=== PATIENT | female | born 1955 | race Caucasian/White ===

== ENCOUNTER 2018-02-01 18:53 | Observation (INO) | payer MEDICAID ==
--- NOTE | 2018-02-01 19:26 | ED ---
Abdominal Pain/Female - HPI Summary HPI Summary: A 62 y/o female NAUN presents to ED c/o abdominal pain reaching 20/10 in severity. Currently, the patient is in severe pain distress. In the ED room, the patient has a pulse of 105 BPM, O2 saturation of 94% and blood pressure of 203/105. As per triage, "20/10 abdominal pain, pt had BM today that was normal, denies urinary symptoms, heavy daily Vodka drinker, Drank today. 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 Hx HTN and 8x Hernia ". According to the patient, she has been experiencing severe diffuse abdominal pain, more so in the RLQ since the morning. She noted that she has not been vomiting, however, the pain has been getting worse throughout he day. 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 She stated that she could not get the pain to stop, so she has been drinking ETOH "to kill the pain", but denied everyday use. She noted that she has exhibited stomach issues since she was 3 y/ o, however, not like the pain she experiences today. Last known BM was in the AM (approximately half a cup), she urinated about a gallon because she took in lots of water throughout the day. Upon entering the ED room, the patient has her body in a odd position as laying flat aggravates the pain. She was complient with evaluation, however, she was moaning and in obvious distress during examination. PMHx of eight hernias, appendectomy. Patient takes insulin and HBP medications. - History of Current Complaint Chief Complaint: EDAbdPain Stated Complaint: ABD PAIN, ETOH Time Seen by Provider: 02/01/18 19:23 Hx Obtained From: Patient Onset/Duration: Sudden Onset, Lasting Hours, Still Present, Worse Since - AM Timing: Constant Severity Initially: Severe Severity Currently: Severe Pain Intensity: 20 Pain Scale Used: 0-10 Numeric Location: Diffuse - More so in RLQ Radiates: No Aggravating Factor(s): Movement, Other: - POSITION Alleviating Factor(s): Position Associated Signs and Symptoms: Positive: Negative Allergies/Adverse Reactions: Allergies Allergy/AdvReac Type Severity Reaction Status Date / Time aspirin Allergy Hives Verified 02/01/18 18:58 Home Medications: Home Medications NK [No Home Medications Reported] 02/01/18 [History Confirmed 02/01/18] PMH/Surg Hx/FS Hx/Imm Hx Endocrine/Hematology History: Reports: Hx Diabetes Cardiovascular History: Reports: Hx Hypertension Respiratory History: Denies: Hx Asthma - Surgical History Surgery Procedure, Year, and Place: Eight hernia surgeries Infectious Disease History: No Infectious Disease History: Denies: Traveled Outside the [place] in Last 30 Days - Family History Known Family History: Positive: Diabetes, Other - Brain Tumor - Father - Social History Alcohol Use: Occasionally Substance Use Type: Reports: None Hx Tobacco Use: No Review of Systems Negative: Fever Positive: Abdominal Pain. Negative: Vomiting All Other Systems Reviewed And Are Negative: Yes Physical Exam - Summary Physical Exam Summary: VITAL SIGNS: Reviewed. GENERAL: Patient is a female who is lying uncomfortably in the stretcher. She keeps her body in odd position to alleviate pain. Patient is moaning and in obvious pain distress. Patient is not in any acute respiratory distress. HEAD AND FACE: No signs of trauma. No ecchymosis, hematomas or skull depressions. No sinus tenderness. EYES: PERRLA, EOMI x 2, No injected conjunctiva, no nystagmus. EARS: Hearing grossly intact. Ear canals and tympanic membranes are within normal limits. MOUTH: Oropharynx within normal limits. NECK: Supple, trachea is midline, no adenopathy, no JVD, no carotid bruit, no c- spine tenderness, neck with full ROM. CHEST: Symmetric, no tenderness at palpation LUNGS: Clear to auscultation bilaterally. No wheezing or crackles. CVS: Regular rate and rhythm, S1 and S2 present, no murmurs or gallops appreciated. ABDOMEN: Soft. Diffuse abdominal tenderness, abdomen is distended, hyperactive bowel sounds. No rebound no guarding, and no masses palpated. EXTREMITIES: FROM in all major joints, no edema, no cyanosis or clubbing. NEURO: Alert and oriented x 3. No acute neurological deficits. Speech is normal and follows commands. SKIN: Swelling and ecchymosis of the left hand, but patient stated it has been going on for over a week. Triage Information Reviewed: Yes Vital Signs On Initial Exam: Initial Vitals Temp Pulse Resp BP Pulse Ox 98.0 F 99 18 176/101 97 02/01/18 18:57 02/01/18 18:57 02/01/18 18:57 02/01/18 18:57 02/01/18 18:57 Vital Signs Reviewed: Yes Diagnostics - Vital Signs Vital Signs Temp Pulse Resp BP Pulse Ox 02/01/18 18:57 98.0 F 99 18 176/101 97 - Laboratory Result Diagrams: 02/01/18 20:01 02/01/18 20:01 Lab Statement: Any lab studies that have been ordered have been reviewed, and results considered in the medical decision making process. - Radiology ABDOMEN XR Radiology Interpretation Completed By: ED Physician - Non-specific gas pattern. Pending official report. - CT CT A/P CT Interpretation Completed By: Radiologist - 1. Cholelithiasis. 2. Fatty infiltration of the liver. 3. Status post gastric bypass. 4. Pancreatic atrophy for age. 5. Embolization coils in right adnexa. 6. Otherwise negative CT abdomen/pelvis. ED PHYSICIAN REVIEWED THIS RADIOLOGY REPORT. Abdominal Pain Fem Course/Dx - Course Course Of Treatment: A 62 y/o female NAUN presents to ED c/o abdominal pain reaching 20/10 in severity. Currently, the patient is in severe pain distress. In the ED room, the patient has a pulse of 105 BPM, O2 saturation of 94% and blood pressure of 203/105. An Abdomen XR revealed non-specific gas pattern. A CT A/P revealed 1. Cholelithiasis. 2. Fatty infiltration of the liver. 3. Status post gastric bypass. 4. Pancreatic atrophy for age. 5. Embolization coils in right adnexa. 6. Otherwise negative CT abdomen/pelvis. In the ED course, the patient recieved Thiamina HCL, Diazepam, Iodixanol, Toradol, Reglan , Morphine and IV fluids. Patient care was discussed with hospitalist, Dr. Cochran, who accepts patient for admission. Patient will be admitted with a diagnosis of alcohol withdrawal. Patient is agreeable with this plan. - Diagnoses Provider Diagnoses: Alcohol withdrawal - Provider Notifications Discussed Care Of Patient With: Reagan Cochran Time Discussed With Above Provider: 03:19 Instructed by Provider To: Other - Accepts patient for admission. Discharge - Sign-Out/Discharge Documenting (check all that apply): Patient Departure - DISCHARGE - Discharge Plan Condition: Stable Disposition: HOME Referrals: No Primary Care Phys,NOPCP [Primary Care Provider] - - Attestation Statements Document Initiated by Scribe: Yes Documenting Scribe: Arnaldo Maldonado Provider For Whom Scribe is Documenting (Include Credential): Erika Crain Attestation: Arnaldo Galvan, scribed for Deyanira Abebe on 02/02/18 at 0320.
[2018-02-01] MEDS ORDERED: Metoclopramide IV* 5 MG/ML 2 ML VIAL IV ONE (19:37)
[2018-02-01] MEDS ORDERED: Morphine INJ* 2 MG/ML 1 ML SYRINGE (TWO MG - NEW SYRINGE VERSION) IV ONE (19:37)
[2018-02-01] MEDS ORDERED: NS 0.9% 1000 ML* 1,000 ML IV ONE ×2 (19:37→20:28)
[2018-02-01 20:10] LABS: ABS Basophils 0.1 10^3/ul (0-0.2); ABS Eosinophils 0 10^3/ul (0-0.6); ABS Lymphocytes 1.9 10^3/ul (1.0-4.8); ABS Monocytes 0.6 10^3/ul (0-0.8); ABS Neutrophils 4.9 10^3/ul (1.5-7.7); ABS Nucleated RBC 0 10^3/ul; Eosinophil % 0.6 % (0-6); Hematocrit 42 % (35-47); Hemoglobin 14.3 g/dl (12.0-16.0); Lymphocyte % 24.8 % (25-47); Mean Corpuscular HGB Conc 34 g/dl (31-36); Mean Corpuscular Hemoglobin 31 pg (27-31); Mean Corpuscular Volume 92 fL (80-97); Mean Platelet Volume 6.8 um3 (7.4-10.4); Nucleated Red Blood Cells % 0.1; Platelet Count 351 10^3/ul (150-450); Red Blood Count 4.56 10^6/ul (4.00-5.40); Red Cell Distribution Width 14 % (10.5-15); White Blood Count 7.5 10^3/ul (3.5-10.8)
--- OUTSIDE RECORDS SUMMARY | 2018-02-01 20:12 | XMS REPORT | Continuity of Care Document ---
:[address] [facility] Address [address] [place], [place] [id number] Care Team Providers Name Role Phone Tanisha Conroy MD Unavailable Unavailable Allergies, Adverse Reactions, Alerts Substance Reaction Status No information Medications Medication Instructions Dosage Effective Dates Status Comments (start - stop) BD Insulin Syringe use as directed - Active ICD-10 is E11.6 Half Unit Ultra-Fine 0.3 mL 31 gauge x 5/16" Problems Condition Effective Dates (start - stop) Clinical Status Comments No information Procedures Procedure Date No information Results Test Name Date and Time Measure Units Reference Range Abnormal Flag Status Comments No information Advance Directives Directive Yes / No Effective Date File Name No information Encounters Encounter Practice Location Reason(s) Diagnoses Date Provider Providers Description For Visit Copied on Encounter Shanika Voss [facility] Tanisha. [facility] [address] Services, [facility] [address] [facility] [address], . [place], tel:[phone] Shanika, [address] [place], [phone], Family History Family Member Diagnosis Age At Onset Mother Stroke Mother Hypertension Brother Osteoarthritis Father Depression Family history of Hypertension Father Hypertension Brother Hypertension Father OCD Family history of Diabetes mellitus Mother Hyperlipidemia Immunizations Vaccine Date Status Comments No information Payers Payer name Insurance type Covered alliance party ID Authorization(s) Medicaid [id number] Social History Type Description Quantity Date Captured Comments Alcohol Use Details Unknown Caffeine Use Details Unknown Tobacco Use Status Unknown Smoking Status Unknown Sex Female Vital Signs Date / Height Weight BMI Pulse Blood Temperature Respiratory Body Head BMI Pulse Inhaled Time: Rate Pressure Rate Surface Circumference percentile Ox Ox Area No information Chief Complaint And Reason For Visit No information Reason For Referral Reason For Referral No information Plan Of Treatment Date Type Action Status Appointment Nella Laboy BOOKED History Of Present Illness Encounter Date Complaint History Of Present Illness No information Functional Status Date Functional Assessment No information Medications Administered Medication Instructions Dosage Effective Dates (start - stop) Status Comments No information Instructions Date Instruction Additional Information No information Assessments Type Assessment Date No information Goals Health Concern Goal Type Priority Status Date No information Medical Equipment Description Device [place] Device Identifier Effective Dates (start - stop ) Status No information Mental Status Date Cognitive Assessment No information Health Concerns Observation Date No information Concern Status Date No information
--- OUTSIDE RECORDS SUMMARY | 2018-02-01 20:12 | XMS REPORT | Continuity of Care Document ---
:1955 Author Organization [facility] Address [address] [place], [place] [id number] Care Team Providers Name Role Phone Stephanie Andrews Unavailable Unavailable Allergies, Adverse Reactions, Alerts Substance Reaction Status No information Medications Medication Instructions Dosage Effective Dates Status Comments (start - stop) ferrous sulfate take 1 by Oral route 1 - Active 325 mg (65 mg 2 times every day iron) tablet Miralax 17 TAKE (17G) BY ORAL - No Longer gram/dose oral ROUTE EVERY DAY Active powder MIXED WITH 8 OZ. WATER, JUICE, SODA, COFFEE OR TEA Problems Condition Effective Dates (start - stop) Clinical Status Comments No information Procedures Procedure Date No information Results Test Name Date and Time Measure Units Reference Range Abnormal Flag Status Comments No information Advance Directives Directive Yes / No Effective Date File Name No information Encounters Encounter Practice Location Reason(s) Diagnoses Date Provider Providers Description For Visit Copied on Encounter [facility] [address], [facility] [address] [facility] [address], . [place], tel:[phone] Shanika [address] [place], [phone], Family History Family Member Diagnosis Age At Onset Mother Stroke Mother Hypertension Brother Osteoarthritis Father Depression Family history of Hypertension Father Hypertension Brother Hypertension Father OCD Family history of Diabetes mellitus Mother Hyperlipidemia Immunizations Vaccine Date Status Comments No information Payers Payer name Insurance type Covered constitution party ID Authorization(s) Medicaid [id number] Social History Type Description Quantity Date Captured [...] Type Action Status Appointment Nella Laboy BOOKED Appointment Nella Laboy BOOKED History Of Present [...] Date No information Medical Equipment Description Device [place] Device Identifier Effective Dates (start - stop ) Status No information Mental Status Date Cognitive Assessment No information Health Concerns Observation Date No information Concern Status Date No information
--- OUTSIDE RECORDS SUMMARY | 2018-02-01 20:12 | XMS REPORT | Continuity of Care Document ---
:1955 Author Organization [facility] Address [address] [place], [place] [id number] Care Team Providers Name Role Phone Tanisha Conroy MD Unavailable Unavailable Allergies, Adverse Reactions, Alerts Substance Reaction Status No information Medications Medication Instructions Dosage Effective Dates Status Comments (start - stop) PRAVASTATIN SODIUM 20 TAKE 1 TABLET EVERY 20 MG - Active MG TAB DAY PIROXICAM 10 MG TAKE ONE CAPSULE EVERY 10 MG - Active CAPSULE DAY WITH MEALS METFORMIN HCL 500 MG TAKE 1 TABLET EVERY 500 MG - Active TABLET DAY HYDROXYZINE HCL 25 MG TAKE 1 TABLET EVERY - Active TABLET DAY NEEDED FREESTYLE LITE TEST TEST THREE TIMES A DAY 2 - Active STRIP Problems Condition Effective Dates (start - stop) Clinical Status Comments No information Procedures Procedure Date No information Results Test Name Date and Time Measure Units Reference Range Abnormal Flag Status Comments No information Advance Directives Directive Yes / No Effective Date File Name No information Encounters Encounter Practice Location Reason(s) Diagnoses Date Provider Providers Description For Visit Copied on Encounter Shanika Voss [facility] -[facility] Tanisha. [facility] [address] [address] [place] [address], . [place], tel:[phone] Shanika, [address] [place], [phone], Family History Family Member Diagnosis Age At Onset Mother Stroke Mother Hypertension Brother Osteoarthritis Father Depression Family history of Hypertension Father Hypertension Brother Hypertension Father OCD Family history of Diabetes mellitus Mother Hyperlipidemia Immunizations Vaccine Date Status Comments No information Payers Payer name Insurance type Covered green party ID Authorization(s) Medicaid [id number] Social History Type Description Quantity Date Captured Comments Sex Female Vital Signs Date / Height [...] Date No information Medical Equipment Description Device [place] Device Identifier Effective Dates (start - stop ) Status No information Mental Status Date Cognitive Assessment No information Health Concerns Observation Date No information Concern Status Date No information
--- OUTSIDE RECORDS SUMMARY | 2018-02-01 20:12 | XMS REPORT | Continuity of Care Document ---
:1955 Author Organization [facility] Address [address] [place], [place] [id number] Care Team Providers Name Role Phone Tanisha Conroy MD Unavailable Unavailable Allergies, Adverse Reactions, Alerts Substance Reaction Status No information Medications Medication Instructions Dosage Effective Dates Status Comments (start - stop) LISINOPRIL 10 MG TAKE 1 TABLET EVERY 10 MG - Active TABLET DAY Problems Condition Effective Dates (start - stop) Clinical Status Comments No information Procedures Procedure Date No information Results Test Name Date and Time Measure Units Reference Range Abnormal Flag Status Comments No information Advance Directives Directive Yes / No Effective Date File Name No information Encounters Encounter Practice Location Reason(s) Diagnoses Date Provider Providers Description For Visit Copied on Encounter Shanika Voss [facility] -[facility] Tanisha. [facility] [address] [facility] [facility] [address], . [place], tel:[phone] Shanika, [address] [place], [phone], Family History Family Member Diagnosis Age At Onset Mother Stroke Mother Hypertension Brother Osteoarthritis Father Depression Family history of Hypertension Father Hypertension Brother Hypertension Father OCD Family history of Diabetes mellitus Mother Hyperlipidemia Immunizations Vaccine Date Status Comments No information Payers Payer name Insurance type Covered libertarian ID Authorization(s) Medicaid [id number] Social History Type Description Quantity Date Captured [...] Date No information Medical Equipment Description Device [place] Device Identifier Effective Dates (start - stop ) Status No information Mental Status Date Cognitive Assessment No information Health Concerns Observation Date No information Concern Status Date No information
--- OUTSIDE RECORDS SUMMARY | 2018-02-01 20:12 | XMS REPORT | Continuity of Care Document ---
:1955 Author Organization [facility] Address [address] [facility] [place] [id number] Care Team Providers Name Role Phone David Park MD Unavailable Unavailable Allergies, Adverse Reactions, Alerts Substance Reaction Status No information Medications Medication Instructions Dosage Effective Dates Status Comments (start - stop) POLYETHYLENE GLYCOL TAKE (17G) BY ORAL - Active [address] EVERY DAY MIXED WITH 8 OZ. WATER, JUICE, SODA, [...] For Visit Copied on Encounter Shanika Voss [facility] David. [address] [facility] [address] [facility], . Cat[place] tel:[phone] [place], [address] [place], [place], [phone], Family History Family Member Diagnosis Age At Onset Mother Stroke Mother Hypertension Brother Osteoarthritis Father Depression Family history of Hypertension Father Hypertension Brother Hypertension Father OCD Family history of Diabetes mellitus Mother Hyperlipidemia Immunizations Vaccine Date Status Comments No information Payers Payer name Insurance type Covered green party ID Authorization(s) Medicaid [id number] Social History Type Description Quantity Date Captured [...] Date No information Medical Equipment Description Device [place] Device Identifier Effective Dates (start - stop ) Status No information Mental Status Date Cognitive Assessment No information Health Concerns Observation Date No information Concern Status Date No information
--- OUTSIDE RECORDS SUMMARY | 2018-02-01 20:12 | XMS REPORT | Continuity of Care Document ---
:1955 Author Organization [facility] Address [address] [place], [place] [phone] Care Team Providers Name Role Phone David Park MD Unavailable Unavailable Allergies, Adverse Reactions, Alerts Substance Reaction Status No information Medications Medication Instructions Dosage Effective Dates Status Comments (start - stop) CYANOCOBALAMIN 1,000 INJECT 1 MILLILITER - Active MCG/ML INTRAMUSCULARLY EVERY MONTH Problems Condition Effective Dates (start - stop) Clinical Status Comments No information Procedures Procedure Date No information Results Test Name Date and Time Measure Units Reference Range Abnormal Flag Status Comments No information Advance Directives Directive Yes / No Effective Date File Name No information Encounters Encounter Practice Location Reason(s) Diagnoses Date Provider Providers Description For Visit Copied on Encounter Shanika Voss [facility] David. [address] [facility], [address] [place], [facility], . Catcher tel:[phone] [place], [address] [place], [place], [phone], Family History Family Member Diagnosis Age At Onset Mother Stroke Mother Hypertension Brother Osteoarthritis Father Depression Family history of Hypertension Father Hypertension Brother Hypertension Father OCD Family history of Diabetes mellitus Mother Hyperlipidemia Immunizations Vaccine Date Status Comments No information Payers Payer name Insurance type Covered constitution party ID Authorization(s) Medicaid [id number] Social History Type Description Quantity Date Captured [...] Date No information Medical Equipment Description Device [place] Device Identifier Effective Dates (start - stop ) Status No information Mental Status Date Cognitive Assessment No information Health Concerns Observation Date No information Concern Status Date No information
--- OUTSIDE RECORDS SUMMARY | 2018-02-01 20:12 | XMS REPORT | Continuity of Care Document ---
:1955 Author Organization [facility] Address [address] [place], [place] [phone] Care Team Providers Name Role Phone Tanisha Conroy MD Unavailable Unavailable Allergies, Adverse Reactions, Alerts Substance Reaction Status No information Medications Medication Instructions Dosage Effective Dates Status Comments (start - stop) Lovaza 1 gram TAKE 2 CAPSULES BY - Active capsule MOUTH TWICE A DAY hydrocodone 5 take 1 tablet by 1 tablet - Active MDD of 3 tabs mg-acetaminophen oral route every 8 325 mg tablet hours as needed for pain Problems Condition Effective Dates (start - stop) Clinical Status Comments No information Procedures Procedure Date No information Results Test Name Date and Time Measure Units Reference Range Abnormal Flag Status Comments No information Advance Directives Directive Yes / No Effective Date File Name No information Encounters Encounter Practice Location Reason(s) Diagnoses Date Provider Providers Description For Visit Copied on Encounter Shanika [facility]oss [facility] Tanisha. [facility] [address] Services, [facility] [address] [facility] [address] [address], . [place], tel:[phone] Shanika, [address] [place], [phone], Family History Family Member Diagnosis Age At Onset Mother Stroke Mother Hypertension Brother Osteoarthritis Father Depression Family history of Hypertension Father Hypertension Brother Hypertension Father OCD Family history of Diabetes mellitus Mother Hyperlipidemia Immunizations Vaccine Date Status Comments No information Payers Payer name Insurance type Covered constitution party ID Authorization(s) Medicaid MC [id number] Social History Type Description Quantity Date Captured [...] Date No information Medical Equipment Description Device [place] Device Identifier Effective Dates (start - stop ) Status No information Mental Status Date Cognitive Assessment No information Health Concerns Observation Date No information Concern Status Date No information
[2018-02-01 20:17] LABS: INR 0.9 (0.77-1.02)
[2018-02-01 20:25] LABS: EGFR Non-African American 82.3 (>60)
[2018-02-01] MEDS ORDERED: Iodixanol* (CONTRAST) 320 MG/ML 100 ML SDV IV ONE (20:29)
--- NOTE | 2018-02-01 21:28 | RAD ---
EXAM: CT Abdomen and Pelvis With Intravenous Contrast EXAM DATE/TIME: Exam ordered 02/01/2018 8:43 PM CLINICAL HISTORY: 62 years old, female; Pain; Abdominal pain; Acute; Prior surgery; Surgery date: 6+ months; Surgery type: Hernia repair; Patient HX: ETOH abuse daily; Additional info: Abd pain TECHNIQUE: Axial computed tomography images of the abdomen and pelvis with intravenous contrast. All CT scans at this facility use at least one of these dose optimization techniques: automated exposure control; mA and/or kV adjustment per patient size (includes targeted exams where dose is matched to clinical indication); or iterative reconstruction. Coronal and sagittal reformatted images were created and reviewed. CONTRAST: 94 mL of visipaque 320 administered intravenously. COMPARISON: No relevant prior studies available. FINDINGS: Lung bases: Unremarkable. No mass. No consolidation. ABDOMEN: Liver: There is fatty infiltration of the liver. Gallbladder and bile ducts: There are multiple gallstones in the gallbladder. No ductal dilation. Pancreas: Pancreatic atrophy for age. No ductal dilation. Spleen: Unremarkable. No splenomegaly. Adrenals: Unremarkable. No mass. Kidneys and ureters: Unremarkable. No solid mass. No hydronephrosis. Stomach and bowel: Status post gastric bypass with minimal fluid in the bypassed stomach. No obstruction. No mucosal thickening. PELVIS: Appendix: There are no changes of appendicitis. A normal appendix is not seen. Bladder: Unremarkable. No mass. Reproductive: Unremarkable as visualized. ABDOMEN and PELVIS: Intraperitoneal space: Unremarkable. No free air. No significant fluid collection. Bones/joints: Degenerative changes of the thoracic and lumbar spine with facet arthropathy and mild anterolisthesis of L4 relative to L5. No acute fracture. No dislocation. Soft tissues: Small fat filled ventral wall hernias. At midline, these appear to be incisional. In the left lower quadrant, there may be residua of prior colostomy. Vasculature: There is mild calcification of the abdominal aorta with extension into the iliac arteries. Metallic densities in the right adnexa which may reflect embolization coils. No abdominal aortic aneurysm. Lymph nodes: Unremarkable. No enlarged lymph nodes. IMPRESSION: 1. Cholelithiasis. 2. Fatty infiltration of the liver. 3. Status post gastric bypass. 4. Pancreatic atrophy for age. 5. Embolization coils in right adnexa. 6. Otherwise negative CT abdomen/pelvis.
[2018-02-01] MEDS ORDERED: Ketorolac INJ* 30 MG/ML 1 ML VIAL ONE (22:40)
[2018-02-01] MEDS ORDERED: Ketorolac INJ* 30 MG/ML 1 ML VIAL IV PUSH ONE (22:42)
[2018-02-02] MEDS ORDERED: NS 0.9% 1000 ML* 1,000 ML IV ONE (00:46)
[2018-02-02] MEDS ORDERED: Thiamine IV* 100 MG, Folic Acid IV* 1 MG, Multiple Vitamin IV ADULT* 10 ML in NS 0.9% 1... IV ONE (03:14)
[2018-02-02] MEDS ORDERED: Diazepam SYRINGE* 5 MG/ML 2 ML SYRINGE (10 MG total) IV ONE (03:14)
[2018-02-02] MEDS ORDERED: Ondansetron INJ* 2 MG/ML VIAL IV ONE (03:30)
--- NOTE | 2018-02-02 03:39 | HP ---
H&P (Free Text) History and Physical: PCP: Dr Conroy at [facility] Date/Time: 02/02/2018 0345 CC: abdominal pain HPI: Mrs Laboy is a 62YO female poor historian HX DM2, HTN, HLD, gastric bypass , who was at home 02/01/2018 in the afternoon when she sat on her couch and developed sudden onset severe sharp nicole-umbilical pain which caused her to "pass out". Family called EMS and she was brought to [facility] [place] [facility]. She reports F/C, sweats, nausea with emesis x1, but no change in bowel/bladder, chest pain, SOB, palpitations, or other issues. Initial ED evaluation revealed a negative CT abd/ pel WO, lactic acid of 3.5, CRP <1, and WBC 7.5k without granulocytic shift. Case was reviewed with Franklin Baig MD surgery who reviewed the CT and agreed to arrange evaluation in the AM. Last bowel movement was AM of 02/01. Currently passing flatus which she states helped the abdominal pain. During her 8H ED stay , she developed tremulousness, mild confusion, diaphoresis about the head/neck, & increasing tachycardia concerning for alcohol withdrawal syndrome as her serum alcohol was >200 at arrival. PMedHx DM2 HTN HLD Ambulatory Orders Patient unable to name. Nursing to reconcile via outpatient pharmacy or PCP in AM. 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; full FamHx: Mother: alive with DM; Father: passed at 86 of unknown cause; Brother: DM ROS: as above, otherwise reviewed and all were negative vitals: Vital Signs Temp 36.7 C 02/01/18 18:57 Pulse 112 02/02/18 02:06 Resp 24 02/02/18 03:53 BP 173/77 02/02/18 02:06 Pulse Ox 96 02/02/18 02:06 Intake & Output 02/01/18 02/01/18 02/02/18 11:59 23:59 11:59 Intake Total 2000 4000 Balance 2000 4000 Weight 74.843 kg Intake: IV Fluids 999 1999 IVPB 999 1999 Constitutional: NAD, normally developed, tremulous, obese white female HEENM: atraumatic; sclera/conjunctiva: anicteric/clear; hearing: clinically intact; oropharynx: clear, mucosa moist Neck: soft tissue: non-tender; thyroid: normal Pulmonary: clear to auscultation bilaterally, good aeration, no accessory muscle use CV: TR/RR, normal S1S2, no carotid bruit, no jugular venous distention, 2+ B DP/ PT, no edema Abdominal: soft, non-distended, mild diffuse tenderness, no rebound/guarding/ rigidity, mildly hyperactive bowel sounds, no hepatosplenomegaly or masses, no costovertebral angle tenderness Musculoskeletal: general: grossly intact, non-tender Integumental: diaphoretic about the head/neck; otherwise normal appearance and texture of exposed skin Psychiatric orientation: AA&O to PPS affect: mildly confused mood: cooperative eye contact: fair content: unreliable responses: highly tangential insight: fair Testing: Lab Results 02/01/18 02/01/18 02/01/18 Range/Units 20:01 20:01 20:01 WBC 7.5 (3.5-10.8) 10^3/ul RBC 4.56 (4.00-5.40) 10^6/ul Hgb 14.3 (12.0-16.0) g/dl Hct 42 (35-47) % MCV 92 (80-97) fL MCH 31 (27-31) pg MCHC 34 (31-36) g/dl RDW 14 (10.5-15) % Plt Count 351 (150-450) 10^3/ul MPV 6.8 L (7.4-10.4) um3 Neut % (Auto) 64.6 (38-83) % Lymph % (Auto) 24.8 L (25-47) % [place] % (Auto) 8.3 H (0-7) % Eos % (Auto) 0.6 (0-6) % Baso % (Auto) 1.7 (0-2) % Absolute Neuts (auto) 4.9 (1.5-7.7) 10^3/ul Absolute Lymphs (auto) 1.9 (1.0-4.8) 10^3/ul Absolute Monos (auto) 0.6 (0-0.8) 10^3/ul Absolute Eos (auto) 0 (0-0.6) 10^3/ul Absolute Basos (auto) 0.1 (0-0.2) 10^3/ul Absolute Nucleated RBC 0 10^3/ul Nucleated RBC % 0.1 INR (Anticoag Therapy) 0.90 (0.77-1.02) APTT 32.3 (26.0-36.3) seconds Sodium 139 (135-145) mmol/L Potassium 3.9 (3.5-5.0) mmol/L Chloride 100 L (101-111) mmol/L Carbon Dioxide 21 L (22-32) mmol/L Anion Gap 18 H (2-11) mmol/L BUN 18 (6-24) mg/dL Creatinine 0.72 (0.51-0.95) mg/dL Est GFR ( Amer) 99.6 (>60) Est GFR (Non-Af Amer) 82.3 (>60) BUN/Creatinine Ratio 25.0 H (8-20) Glucose 103 H (70-100) mg/dL POC Glucose (mg/dL) (70-100) mg/dL Lactic Acid (0.5-2.0) mmol/L Calcium 9.4 (8.6-10.3) mg/dL Magnesium 1.9 (1.9-2.7) mg/dL Total Bilirubin 1.00 (0.2-1.0) mg/dL AST 37 (13-39) U/L ALT 33 (7-52) U/L Alkaline Phosphatase 92 (34-104) U/L C-Reactive Protein < 1.00 (<8.01) mg/L Total Protein 7.2 (6.4-8.9) g/dL Albumin 4.7 (3.2-5.2) g/dL Globulin 2.5 (2-4) g/dL Albumin/Globulin Ratio 1.9 (1-3) Lipase 65 (11.0-82.0) U/L Serum Alcohol 217 H (<10) mg/dL Blood Type Antibody Screen 02/01/18 02/01/18 02/01/18 Range/Units 20:01 20:01 23:45 WBC (3.5-10.8) 10^3/ul RBC (4.00-5.40) 10^6/ul Hgb (12.0-16.0) g/dl Hct (35-47) % MCV (80-97) fL MCH (27-31) pg MCHC (31-36) g/dl RDW (10.5-15) % Plt Count (150-450) 10^3/ul MPV (7.4-10.4) um3 Neut % (Auto) (38-83) % Lymph % (Auto) (25-47) % [place] % (Auto) (0-7) % Eos % (Auto) (0-6) % Baso % (Auto) (0-2) % Absolute Neuts (auto) (1.5-7.7) 10^3/ul Absolute Lymphs (auto) (1.0-4.8) 10^3/ul Absolute Monos (auto) (0-0.8) 10^3/ul Absolute Eos (auto) (0-0.6) 10^3/ul Absolute Basos (auto) (0-0.2) 10^3/ul Absolute Nucleated RBC 10^3/ul Nucleated RBC % INR (Anticoag Therapy) (0.77-1.02) APTT (26.0-36.3) seconds Sodium (135-145) mmol/L Potassium (3.5-5.0) mmol/L Chloride (101-111) mmol/L Carbon Dioxide (22-32) mmol/L Anion Gap (2-11) mmol/L BUN (6-24) mg/dL Creatinine (0.51-0.95) mg/dL Est GFR ( Amer) (>60) Est GFR (Non-Af Amer) (>60) BUN/Creatinine Ratio (8-20) Glucose (70-100) mg/dL POC Glucose (mg/dL) (70-100) mg/dL Lactic Acid 3.5 H* 3.2 H* (0.5-2.0) mmol/L Calcium (8.6-10.3) mg/dL Magnesium (1.9-2.7) mg/dL Total Bilirubin (0.2-1.0) mg/dL AST (13-39) U/L ALT (7-52) U/L Alkaline Phosphatase (34-104) U/L C-Reactive Protein (<8.01) mg/L Total Protein (6.4-8.9) g/dL Albumin (3.2-5.2) g/dL Globulin (2-4) g/dL Albumin/Globulin Ratio (1-3) Lipase (11.0-82.0) U/L Serum Alcohol (<10) mg/dL Blood Type O Positive Antibody Screen Negative 02/02/18 02/02/18 02/02/18 Range/Units 02:43 02:59 02:59 WBC (3.5-10.8) 10^3/ul RBC (4.00-5.40) 10^6/ul Hgb (12.0-16.0) g/dl Hct (35-47) % MCV (80-97) fL MCH (27-31) pg MCHC (31-36) g/dl RDW (10.5-15) % Plt Count (150-450) 10^3/ul MPV (7.4-10.4) um3 Neut % (Auto) (38-83) % Lymph % (Auto) (25-47) % [place] % (Auto) (0-7) % Eos % (Auto) (0-6) % Baso % (Auto) (0-2) % Absolute Neuts (auto) (1.5-7.7) 10^3/ul Absolute Lymphs (auto) (1.0-4.8) 10^3/ul Absolute Monos (auto) (0-0.8) 10^3/ul Absolute Eos (auto) (0-0.6) 10^3/ul Absolute Basos (auto) (0-0.2) 10^3/ul Absolute Nucleated RBC 10^3/ul Nucleated RBC % INR (Anticoag Therapy) (0.77-1.02) APTT (26.0-36.3) seconds Sodium 135 (135-145) mmol/L Potassium 3.6 (3.5-5.0) mmol/L Chloride 99 L (101-111) mmol/L Carbon Dioxide 16 L (22-32) mmol/L Anion Gap 20 H (2-11) mmol/L BUN 15 (6-24) mg/dL Creatinine 0.66 (0.51-0.95) mg/dL Est GFR ( Amer) 110.2 (>60) Est GFR (Non-Af Amer) 91.0 (>60) BUN/Creatinine Ratio 22.7 H (8-20) Glucose 124 H (70-100) mg/dL POC Glucose (mg/dL) 103 H (70-100) mg/dL Lactic Acid 2.2 H* (0.5-2.0) mmol/L Calcium 8.7 (8.6-10.3) mg/dL Magnesium (1.9-2.7) mg/dL Total Bilirubin (0.2-1.0) mg/dL AST (13-39) U/L ALT (7-52) U/L Alkaline Phosphatase (34-104) U/L C-Reactive Protein (<8.01) mg/L Total Protein (6.4-8.9) g/dL Albumin (3.2-5.2) g/dL Globulin (2-4) g/dL Albumin/Globulin Ratio (1-3) Lipase (11.0-82.0) U/L Serum Alcohol (<10) mg/dL Blood Type Antibody Screen ECG, personally reviewed: ordered, pending XRY abdomen, personally reviewed: non-specific bowel gas pattern, unremarkable lung bases CT abd/pel W: IMPRESSION: 1. Cholelithiasis. 2. Fatty infiltration of the liver. 3. Status post gastric bypass. 4. Pancreatic atrophy for age. 5. Embolization coils in right adnexa. 6. Otherwise negative CT abdomen/pelvis. Impression: 62F HX DM2, HTN, HLD, gastric bypass presenting intoxicated with abdominal pain of uncertain etiology, initially intoxicated with development of diaphoresis, tremulousness, and worsening tachycardia suspicious of alcohol withdrawal over her 8 hour ED stay DIAGNOSIS & PLAN Primary abdominal pain w/ HX gastric bypass of uncertain etiology : Franklin Baig MD surgery consulted, will arrange evaluation in AM : pain control : supportive care clinical syndrome suspicious for alcohol withdrawal : WAM protocol : telemetry Secondary DM2 : NPO x/ meds with sips water : Q4H glucometry w/ correctional lispro : check A1c HTN : lisinopril 5mg QAM & metoprolol 50mg QPM until home meds able to be reconciled HLD : atorvatstatin 40mg PO QPM until home meds able to be reconciled Admission Rational: Inpatient as without the above interventions the risk of impending adverse outcome is unacceptably high; inappropriate for the outpatient setting DVTp: heparin SQ Code Status: full HCP: mother, Brianne Laboy
[2018-02-02] MEDS ORDERED: Diazepam INJ (NF) 5 MG/ML 10 ML VIAL (50 MG TOTAL) IV ONE (03:45)
[2018-02-02] MEDS ORDERED: Acetaminophen TAB* 325 MG PO PRN (04:22)
[2018-02-02] MEDS ORDERED: Melatonin 3 MG TAB PO PRN (04:22)
[2018-02-02] MEDS ORDERED: Ondansetron ODT TAB* 4 MG PO PRN (04:22)
[2018-02-02] MEDS ORDERED: NS 0.9% 1000 ML* 1,000 ML IV SCH (04:30)
[2018-02-02 05:23] LABS: ABS Basophils 0.1 10^3/ul (0-0.2); ABS Eosinophils 0 10^3/ul (0-0.6); ABS Lymphocytes 0.8 10^3/ul (1.0-4.8); ABS Monocytes 0.7 10^3/ul (0-0.8); ABS Neutrophils 6.6 10^3/ul (1.5-7.7); ABS Nucleated RBC 0 10^3/ul; Eosinophil % 0 % (0-6); Hematocrit 39 % (35-47); Lymphocyte % 9.4 % (25-47); Mean Corpuscular HGB Conc 33 g/dl (31-36); Mean Corpuscular Hemoglobin 31 pg (27-31); Mean Corpuscular Volume 93 fL (80-97); Mean Platelet Volume 6.8 um3 (7.4-10.4); Nucleated Red Blood Cells % 0; Platelet Count 310 10^3/ul (150-450); Red Cell Distribution Width 14 % (10.5-15); White Blood Count 8.1 10^3/ul (3.5-10.8)
[2018-02-02 05:35] LABS: EGFR Non-African American 75.1 (>60)
[2018-02-02] MEDS: HYDROmorphone INJ1* 1 MG/ML SYRINGE IV PRN ×2 (05:53→08:09)
[2018-02-02] MEDS ORDERED: Omeprazole CAP* 20 MG PO SCH (06:00)
[2018-02-02] MEDS: Insulin LISPRO* 1 UNITS UNIT SUBCUT SCH ×3 (06:07→13:46)
[2018-02-02] MEDS: LORazepam INJ* 2 MG/ML 1 ML VIAL IV PUSH SCH ×2 (06:19→08:40)
--- NOTE | 2018-02-02 07:41 | RAD ---
Indication: Abdominal pain. Flat and upright views of the abdomen demonstrates no free air. Bowel gas pattern is unremarkable. No dilated loops of bowel are noted. Psoas margins are intact. Surgical clips are noted in the pelvis. IMPRESSION: No free air or intestinal obstruction is noted. R1
[2018-02-02 07:56] LABS: Urine Appearance Clear; Urine Blood Negative (Negative); Urine Color Straw; Urine Ketones 2+ (Negative); Urine Protein Negative (Negative); Urine Specific Gravity 1.009 (1.010-1.030); Urine Urobilinogen Negative (Negative)
--- NOTE | 2018-02-02 08:41 | CONSULT ---
Consult Consult: Surgery Consult Asked by Dr. Cochran to evaluate a pt. with abd. pain who is going through EtOH withdrawal. Ms. Laboy is a 62 y.o. female who says that she suddenly developed low abd. pain yesterday. She tried lying down, but that did not relieve the pain. Although she says the pain came on suddenly, she also says that she had been drinking a lot that day to relieve the pain. She denies fever , chills, diarrhea or vomiting. She has a normal BM yesterday AM. When she came to the ER she was found to be withdrawing from EtOH and was admitted. Since she has a h/o gastric bypass many years ago, surgery was called to assess. She has been told she has gallstones and thinks the gall bladder may be the problem. PMHx: diabetes, high cholesterol PSHx: gastric bypass, hysterectomy, abdominoplasty Meds: see med rec All: asa SH: neg. tob., usually "a glass or 2" occasionally, but a lot yesterday, neg. IVDA FH: diabetes PE: general: WDWN female in NAD, moves easily in bed. Vital Signs 02/01/18 02/01/18 02/01/18 18:57 19:05 19:06 Temperature 98.0 F Pulse Rate 99 101 101 Respiratory 18 Rate Blood Pressure 176/101 203/105 (mmHg) O2 Sat by Pulse 97 93 94 Oximetry 02/01/18 02/01/18 02/01/18 20:09 20:10 20:52 Temperature Pulse Rate 104 114 Respiratory 16 19 19 Rate Blood Pressure 176/87 181/90 (mmHg) O2 Sat by Pulse 95 94 Oximetry 02/01/18 02/01/18 02/01/18 21:00 21:06 21:36 Temperature Pulse Rate 106 105 108 Respiratory 10 11 14 Rate Blood Pressure 176/103 184/90 (mmHg) O2 Sat by Pulse 96 95 95 Oximetry 02/01/18 02/01/18 02/01/18 22:00 22:06 22:59 Temperature Pulse Rate 111 112 Respiratory 15 14 Rate Blood Pressure 168/93 (mmHg) O2 Sat by Pulse 96 96 Oximetry 02/01/18 02/01/18 02/01/18 23:00 23:06 23:36 Temperature Pulse Rate 121 111 111 Respiratory Rate Blood Pressure 191/95 169/76 (mmHg) O2 Sat by Pulse 96 96 95 Oximetry 02/02/18 02/02/18 02/02/18 00:06 00:07 00:36 Temperature Pulse Rate 111 110 Respiratory Rate Blood Pressure 178/92 169/85 (mmHg) O2 Sat by Pulse 96 97 Oximetry 02/02/18 02/02/18 02/02/18 01:00 01:06 01:36 Temperature Pulse Rate 107 109 111 Respiratory Rate Blood Pressure 175/82 155/67 (mmHg) O2 Sat by Pulse 94 94 96 Oximetry 02/02/18 02/02/18 02/02/18 02:00 02:06 03:00 Temperature Pulse Rate 113 112 116 Respiratory Rate Blood Pressure 173/77 (mmHg) O2 Sat by Pulse 96 96 95 Oximetry 02/02/18 02/02/18 02/02/18 03:53 03:58 04:00 Temperature Pulse Rate 112 110 Respiratory 24 Rate Blood Pressure 171/89 (mmHg) O2 Sat by Pulse 97 97 Oximetry 02/02/18 02/02/18 02/02/18 04:06 04:27 05:15 Temperature 97.5 F Pulse Rate 113 113 Respiratory 20 20 Rate Blood Pressure 172/89 145/87 (mmHg) O2 Sat by Pulse 96 97 Oximetry 02/02/18 02/02/18 02/02/18 05:30 05:53 06:13 Temperature 97.4 F Pulse Rate 110 107 Respiratory 20 20 Rate Blood Pressure 187/85 162/83 (mmHg) O2 Sat by Pulse 97 Oximetry 02/02/18 02/02/18 02/02/18 06:19 07:40 07:51 Temperature Pulse Rate Respiratory 20 20 18 Rate Blood Pressure (mmHg) O2 Sat by Pulse Oximetry 02/02/18 02/02/18 02/02/18 08:00 08:09 08:40 Temperature 98.2 F Pulse Rate 112 Respiratory 20 17 15 Rate Blood Pressure 180/83 (mmHg) O2 Sat by Pulse 99 Oximetry HEENT: anicteric sclerae, moist oral mucosa, neg. cervical adenopathy lungs: clear to ausc heart: reg. abd: good BS, multiple well healed scars, soft, mildly tender to deep palpation only without localizing features. Neg. CVAT ext: neg. cyanosis, edema. CT: neg. Laboratory Results - last 24 hr 02/01/18 02/01/18 02/01/18 20:01 20:01 20:01 WBC 7.5 RBC 4.56 Hgb 14.3 Hct 42 MCV 92 MCH 31 MCHC 34 RDW 14 Plt Count 351 MPV 6.8 L Neut % (Auto) 64.6 Lymph % (Auto) 24.8 L [place] % (Auto) 8.3 H Eos % (Auto) 0.6 Baso % (Auto) 1.7 Absolute Neuts (auto) 4.9 Absolute Lymphs (auto) 1.9 Absolute Monos (auto) 0.6 Absolute Eos (auto) 0 Absolute Basos (auto) 0.1 Absolute Nucleated RBC 0 Nucleated RBC % 0.1 INR (Anticoag Therapy) 0.90 APTT 32.3 Sodium 139 Potassium 3.9 Chloride 100 L Carbon Dioxide 21 L Anion Gap 18 H BUN 18 Creatinine 0.72 Est GFR ( Amer) 99.6 Est GFR (Non-Af Amer) 82.3 BUN/Creatinine Ratio 25.0 H Glucose 103 H POC Glucose (mg/dL) Lactic Acid Calcium 9.4 Magnesium 1.9 Total Bilirubin 1.00 AST 37 ALT 33 Alkaline Phosphatase 92 C-Reactive Protein < 1.00 Total Protein 7.2 Albumin 4.7 Globulin 2.5 Albumin/Globulin Ratio 1.9 Lipase 65 Urine Color Urine Appearance Urine pH Ur Specific [place] Urine Protein Urine Ketones Urine Blood Urine Nitrate Urine Bilirubin Urine Urobilinogen Ur Leukocyte Esterase Urine Glucose Serum Alcohol 217 H Blood Type Antibody Screen 02/01/18 02/01/18 02/01/18 20:01 20:01 23:45 WBC RBC Hgb Hct MCV MCH MCHC RDW Plt Count MPV Neut % (Auto) Lymph % (Auto) [place] % (Auto) Eos % (Auto) Baso % (Auto) Absolute Neuts (auto) Absolute Lymphs (auto) Absolute Monos (auto) Absolute Eos (auto) Absolute Basos (auto) Absolute Nucleated RBC Nucleated RBC % INR (Anticoag Therapy) APTT Sodium Potassium Chloride Carbon Dioxide Anion Gap BUN Creatinine Est GFR ( Amer) Est GFR (Non-Af Amer) BUN/Creatinine Ratio Glucose POC Glucose (mg/dL) Lactic Acid 3.5 H* 3.2 H* Calcium Magnesium Total Bilirubin AST ALT Alkaline Phosphatase C-Reactive Protein Total Protein Albumin Globulin Albumin/Globulin Ratio Lipase Urine Color Urine Appearance Urine pH Ur Specific [place] Urine Protein Urine Ketones Urine Blood Urine Nitrate Urine Bilirubin Urine Urobilinogen Ur Leukocyte Esterase Urine Glucose Serum Alcohol Blood Type O Positive Antibody Screen Negative 02/02/18 02/02/18 02/02/18 02:43 02:59 02:59 WBC RBC Hgb Hct MCV MCH MCHC RDW Plt Count MPV Neut % (Auto) Lymph % (Auto) [place] % (Auto) Eos % (Auto) Baso % (Auto) Absolute Neuts (auto) Absolute Lymphs (auto) Absolute Monos (auto) Absolute Eos (auto) Absolute Basos (auto) Absolute Nucleated RBC Nucleated RBC % INR (Anticoag Therapy) APTT Sodium 135 Potassium 3.6 Chloride 99 L Carbon Dioxide 16 L Anion Gap 20 H BUN 15 Creatinine 0.66 Est GFR ( Amer) 110.2 Est GFR (Non-Af Amer) 91.0 BUN/Creatinine Ratio 22.7 H Glucose 124 H POC Glucose (mg/dL) 103 H Lactic Acid 2.2 H* Calcium 8.7 Magnesium Total Bilirubin AST ALT Alkaline Phosphatase C-Reactive Protein Total Protein Albumin Globulin Albumin/Globulin Ratio Lipase Urine Color Urine Appearance Urine pH Ur Specific [place] Urine Protein Urine Ketones Urine Blood Urine Nitrate Urine Bilirubin Urine Urobilinogen Ur Leukocyte Esterase Urine Glucose Serum Alcohol Blood Type Antibody Screen 02/02/18 02/02/18 02/02/18 05:12 05:12 05:12 WBC 8.1 RBC 4.20 Hgb 13.0 Hct 39 MCV 93 MCH 31 MCHC 33 RDW 14 Plt Count 310 MPV 6.8 L Neut % (Auto) 81.8 Lymph % (Auto) 9.4 L [place] % (Auto) 8.1 H Eos % (Auto) 0 Baso % (Auto) 0.7 Absolute Neuts (auto) 6.6 Absolute Lymphs (auto) 0.8 L Absolute Monos (auto) 0.7 Absolute Eos (auto) 0 Absolute Basos (auto) 0.1 Absolute Nucleated RBC 0 Nucleated RBC % 0 INR (Anticoag Therapy) APTT Sodium 134 L Potassium 3.8 Chloride 100 L Carbon Dioxide 18 L Anion Gap 16 H BUN 16 Creatinine 0.78 Est GFR ( Amer) 90.9 Est GFR (Non-Af Amer) 75.1 BUN/Creatinine Ratio 20.5 H Glucose 133 H POC Glucose (mg/dL) Lactic Acid 0.6 Calcium 8.2 L Magnesium Total Bilirubin AST ALT Alkaline Phosphatase C-Reactive Protein Total Protein Albumin Globulin Albumin/Globulin Ratio Lipase Urine Color Urine Appearance Urine pH Ur Specific [place] Urine Protein Urine Ketones Urine Blood Urine Nitrate Urine Bilirubin Urine Urobilinogen Ur Leukocyte Esterase Urine Glucose Serum Alcohol Blood Type Antibody Screen 02/02/18 02/02/18 06:05 07:40 WBC RBC Hgb Hct MCV MCH MCHC RDW Plt Count MPV Neut % (Auto) Lymph % (Auto) [place] % (Auto) Eos % (Auto) Baso % (Auto) Absolute Neuts (auto) Absolute Lymphs (auto) Absolute Monos (auto) Absolute Eos (auto) Absolute Basos (auto) Absolute Nucleated RBC Nucleated RBC % INR (Anticoag Therapy) APTT Sodium Potassium Chloride Carbon Dioxide Anion Gap BUN Creatinine Est GFR ( Amer) Est GFR (Non-Af Amer) BUN/Creatinine Ratio Glucose POC Glucose (mg/dL) 101 H Lactic Acid Calcium Magnesium Total Bilirubin AST ALT Alkaline Phosphatase C-Reactive Protein Total Protein Albumin Globulin Albumin/Globulin Ratio Lipase Urine Color Straw Urine Appearance Clear Urine pH 5.0 Ur Specific [place] 1.009 L Urine Protein Negative Urine Ketones 2+ A Urine Blood Negative Urine Nitrate Negative Urine Bilirubin Negative Urine Urobilinogen Negative Ur Leukocyte Esterase Negative Urine Glucose Negative Serum Alcohol Blood Type Antibody Screen A/P: Abdominal pain without signs infection in a pt. withdrawing from EtOH. Continue to monitor, but not currently acute. Consider sono of RUQ to further evaluate cholelithiasis CLFoster
[2018-02-02] MEDS ORDERED: Multivitamins/Minerals TAB PO SCH (09:00)
[2018-02-02] MEDS ORDERED: Folic Acid TAB* 1 MG PO SCH (09:00)
[2018-02-02] MEDS ORDERED: Thiamine TAB* 100 MG TAB PO SCH (09:00)
[2018-02-02] MEDS ORDERED: Lisinopril TAB* 5 MG PO SCH (09:00)
[2018-02-02] MEDS ORDERED: Docusate CAP* 100 MG PO SCH (09:00)
--- NOTE | 2018-02-02 12:32 | RAD ---
HISTORY: RUQ abd pain COMPARISONS: CT dated February 01, 2018 TECHNIQUE: Multiple transverse and longitudinal ultrasound images were obtained of the right upper quadrant of the abdomen using grayscale and color Doppler imaging. FINDINGS: LIVER: The liver is diffusely echogenic and coarse in echotexture, with decreased acoustic transmission. The liver measures 19.3 cm in long axis.. There is normal hepatopedal flow of the portal vein on Doppler imaging. BILIARY TREE: There is no intrahepatic or extrahepatic biliary dilatation. The common duct measures 0.7 cm. GALLBLADDER: The gallbladder is distended. Multiple shadowing echogenic foci consistent with gallstones are noted. There is no gallbladder wall thickening, pericholecystic fluid, or sonographic Thomason sign. PANCREAS: The head of the pancreas is unremarkable. The tail of the pancreas is not well visualized secondary to overlying bowel gas. RIGHT KIDNEY: The right kidney is normal in shape, size, contour, and echogenicity. There is no hydronephrosis or nephrolithiasis. The right kidney measures 11.6 x 3.9 x 4.7 cm. AORTA AND IVC: The aorta and IVC are unremarkable. FLUID: There are no pleural effusions. There is no free fluid within the hepatorenal recess. OTHER FINDINGS: None. IMPRESSION: 1. HEPATOMEGALY WITH FATTY INFILTRATION OF THE LIVER. 2. CHOLELITHIASIS, WITHOUT SONOGRAPHIC FEATURES OF ACUTE CHOLECYSTITIS.
[2018-02-02] MEDS ORDERED: HYDROmorphone INJ1* 1 MG/ML SYRINGE IV PRN (13:10)
[2018-02-02 14:41] VITALS: BP 151/65
[2018-02-02] MEDS ORDERED: Metoprolol Succinate XL TAB* 50 MG PO SCH (18:00)
[2018-02-02] MEDS ORDERED: Atorvastatin* 40 MG TAB PO SCH (21:00)
[2018-02-03] MEDS ORDERED: Heparin VIAL(*) 5000 UNITS/ML VIAL (FIVE THOUSAND) SUBCUT SCH (06:00)
--- NOTE | 2018-02-04 03:36 | DS ---
CC: Dr. Conroy at [facility] * DISCHARGE SUMMARY: DATE OF ADMISSION: 02/01/18 DATE OF DISCHARGE: 02/02/18 PROVIDER: Amy Oneil NP ATTENDING PHYSICIAN: Dr. Mike Dior * (dictated by Amy Oneil NP) PRIMARY CARE PROVIDER: Dr. Conroy PRIMARY DIAGNOSES: Abdominal pain. SECONDARY DIAGNOSES: 1. Diabetes type 2. 2. Hypertension. 3. Hyperlipidemia. STUDIES COMPLETED IN THE HOSPITAL: She had an abdominal x-ray on 02/01/18, Radiologist's impression: No free air or intestinal obstruction is noted. She had a CT of the abdomen and pelvis on 02/01/18, Radiologist's impression: 1. Cholelithiasis. 2. Fatty infiltration of liver. 3. Status post gastric bypass. 4. Embolization coils in the right adnexa, otherwise CT of the abdomen and pelvis is negative. She had an ultrasound of the gallbladder. Radiologist's impression: 1. Hepatomegaly with fatty infiltration of the liver. 2. Cholelithiasis without sonographic features of acute cholecystitis. DISCHARGE MEDICATIONS: 1. Hydrocodone 1 tablet p.o. q.8 hours as needed for pain. 2. Hydroxyzine 25 mg p.o. daily p.r.n. 3. Feldene 10 mg p.o. t.i.d. with meals. 4. Pravastatin 20 mg p.o. daily. 5. Vitamin D2 50,000 units p.o. weekly. 6. Ferrous sulfate 325 mg p.o. daily. 7. Lisinopril 10 mg p.o. daily. 8. Soma 350 mg p.o. at bedtime. 9. Flexeril 5 mg p.o. t.i.d. 10. Soma 350 mg p.o. t.i.d. 11. Valacyclovir 500 mg. 12. Thiamine 100 mg p.o. daily. 13. Zofran 4 mg p.o. q.8 hours as needed for nausea. 14. Omeprazole 20 mg p.o. daily. 15. Multivitamin 1 tablet p.o. daily. 16. Folic acid 1 mg p.o. daily. 17. Acetaminophen 650 mg q.6 hours as needed for pain. HISTORY OF PRESENT ILLNESS AND HOSPITAL COURSE: Ms. Laboy is a 62-year-old female with past medical history significant for diabetes, hypertension, hyperlipidemia, gastric bypass, who was at home on 02/01/18 in the afternoon and she is on her couch and developed some onset of severe abdominal pain, periumbilical, which caused her to "pass out," family called EMS and she was brought to emergency room for further evaluation. She does report fever and chills plus nausea and emesis x1, but no changes in bowel or bladder habits. Denies any chest pain, shortness of breath, palpitations. Initial evaluation in the emergency room revealed a negative CT of the abdomen and pelvis without contrast. Her lab work showed an elevation in lactic acid of 3.5 with CRP less than 1 and a white count of 7.5 without any shift. The case was reviewed with Lupe Baig MD from Surgery, who reviewed the CT and agreed to arrange for evaluation in the a.m. The patient does report she had a normal bowel movement on 02/01/18 and she continues to pass flatus. She did develop some tremors and mild confusion and diaphoresis while in the emergency room and tachycardia and there was a concern for alcohol withdrawal as her serum alcohol was greater than 200 on arrival to the emergency room. The patient did report that she drinks a significant amount of alcohol during the day. She does report she drinks half a bottle of Vodka every other day. While in the hospital, she did have a gallbladder ultrasound that was negative for cholecystitis, it did show cholelithiasis. Her abdominal pain resolved after pain medication. She has had no nausea or vomiting. No fever or chills. Overnight, the patient is able to tolerate irregular diet without nausea or vomiting. REVIEW OF SYSTEMS: The patient denies any fever, chills, nausea, vomiting, or abdominal pain. Denies any chest pain or shortness of breath. Denies any dysuria or urinary frequency. PHYSICAL EXAM: The patient is alert and oriented x3. HEENT: Head is atraumatic , normocephalic. Eyes: EOMs intact. Sclerae are anicteric and not pale. Oral mucosa appears to be moist. Lungs: Clear to auscultation bilaterally. No wheezes, rales, or rhonchi. Abdomen is soft and nontender, nondistended. Bowel sounds are present x4. Musculoskeletal: Pedal pulses are +2 bilaterally. There is no edema. Skin is intact. Ms. Laboy is stable for discharge home today. Vital signs are as follows: Blood pressure 151/65, heart rate is 92, respirations 18, O2 saturation on room air was 100%, temperature was 98.9. DISCHARGE PLAN: Ms. Laboy will be discharged back home. Activity as tolerated. 1. Abdominal pain. The patient can continue on a consistent carb diet. The patient has no abdominal pain at this time. Her abdomen is soft and nontender. Bowel sounds are present x4. The patient was advised to follow up with her primary care provider if she has any further abdominal pain for further evaluation. She denies any vomiting or bloat or black tarry stools. 2. Hypertension. She should continue on her home medications as previously prescribed. 3. Diabetes. She should continue on her home medications as previously prescribed. 4. Alcohol abuse. The patient does report drinking half liter of vodka every other day. Recommend that she abstain from drinking alcohol as this could be contributing to her abdominal pain causing her to have gastritis. I prescribed her multivitamin, folic acid, and vitamin B12. This is a summarization of her hospitalization. If further details are needed, please obtain a copy of her entire medical record. TIME SPENT: Time spent on this discharge was approximately 60 minutes, greater than half that time was spent with the patient discussing discharge plans and instructions. CONDITION ON DISCHARGE: Stable. AMY ONEIL, MARISOL [id number]/[facility] #: [id number] TERESA
== END 2018-02-02 16:45 | disposition home or self-care (01) ==
LOC: ED 18:53 → INTOOBSV 02-02 04:19 → MEDTELE 02-02 04:19
PROVIDERS: ADMIT Hospitalist; ATTEND Hospitalist
DX: R10.9 Unspecified abdominal pain (principal); E11.9 Type 2 diabetes mellitus without complications; I10 Essential (primary) hypertension; E78.5 Hyperlipidemia, unspecified; K80.20 Calculus of gallbladder without cholecystitis without obstruction; K76.0 Fatty (change of) liver, not elsewhere classified; Z98.84 Bariatric surgery status; F10.239 Alcohol dependence with withdrawal, unspecified
CPT/HCPCS: 36415; 74019; 74177; 76705; 80048; 80053; 80320; 81003; 83036; 83605; 83690; 83735; 85025; 85610; 85730; 86140; 86850; 86900; 86901; 93005; 96374; 96375; 99285; A9270-GY; G0378; G0480; J1170; J1885; J2060; J2270; J2405; J2765; J3360; J3411; Q9967

== ENCOUNTER 2018-02-21 04:52 | Emergency (ER) | payer MEDICAID ==
[2018-02-21] MEDS ORDERED: NS 0.9% 1000 ML* 2,000 ML IV ONE ×2 (04:55→05:18)
--- OUTSIDE RECORDS SUMMARY | 2018-02-21 05:12 | XMS REPORT | Continuity of Care Document ---
:1955 Author Organization [facility] Address [address] [place], [place] [id number] Care Team Providers Name Role Phone Tanisha Conroy MD Unavailable Unavailable Allergies, Adverse Reactions, Alerts Substance Reaction Status No information Medications Medication Instructions Dosage Effective Dates Status Comments (start - stop) Byetta 5 mcg/dose (250 INJECT 0.02 ML (5 MCG) - Active mcg/mL)1.2 mL SUBCUTAEOUS TWICE subcutaneous pen DAILY IN THE MORNING injector AND EVENING BEFORE MEALS Problems Condition Effective Dates (start - stop) Clinical Status Comments No information Procedures Procedure Date No information Results Test Name Date and Time Measure Units Reference Range Abnormal Flag Status Comments No information Advance Directives Directive Yes / No Effective Date File Name No information Encounters Encounter Practice Location Reason(s) Diagnoses Date Provider Providers Description For Visit Copied on Encounter Shanika [facility]2017 Tanisha. [facility] [address] Services, [facility] [address] [facility] [address], . [place], tel:[phone] Shanika [address] [place] [address], [phone], Family History Family Member Diagnosis Age At Onset Mother Stroke Mother Hypertension Brother Osteoarthritis Father Depression Family history of Hypertension Father Hypertension Brother Hypertension Father OCD Family history of Diabetes mellitus Mother Hyperlipidemia Immunizations Vaccine Date Status Comments No information Payers Payer name Insurance type Covered republican ID Authorization(s) Medicaid [id number] Social History Type Description Quantity Date Captured [...] Date No information Medical Equipment Description Device [place] Device Identifier Effective Dates (start - stop ) Status No information Mental Status Date Cognitive Assessment No information Health Concerns Observation Date No information Concern Status Date No information
--- OUTSIDE RECORDS SUMMARY | 2018-02-21 05:12 | XMS REPORT | Continuity of Care Document ---
:1955 Author Organization [facility] Address [address] [place], [place] [id number] Care Team Providers Name Role Phone Tanisha Conroy MD Unavailable Unavailable Allergies, Adverse Reactions, Alerts Substance Reaction Status No information Medications Medication Instructions Dosage Effective Dates Status Comments (start - stop) CYCLOBENZAPRINE 5 MG TAKE 1 TABLET BY - Active TABLET ORAL ROUTE 3 TIMES EVERY DAY CYCLOBENZAPRINE 5 MG TAKE 1 TABLET BY - No Longer TABLET ORAL ROUTE 3 TIMES Active EVERY DAY Problems Condition Effective Dates (start - stop) Clinical Status Comments No information Procedures Procedure Date No information Results Test Name Date and Time Measure Units Reference Range Abnormal Flag Status Comments No information Advance Directives Directive Yes / No Effective Date File Name No information Encounters Encounter Practice Location Reason(s) Diagnoses Date Provider Providers Description For Visit Copied on Encounter Shanika Voss [facility]2017 Tanisha. [facility] [address] Services, [facility] [address] [facility], [address], . [place], tel:[phone] Shanika, [address] [place], [phone], Family History Family Member Diagnosis Age At Onset Mother Stroke Mother Hypertension Brother Osteoarthritis Father Depression Family history of Hypertension Father Hypertension Brother Hypertension Father OCD Family history of Diabetes mellitus Mother Hyperlipidemia Immunizations Vaccine Date Status Comments No information Payers Payer name Insurance type Covered libertarian ID Authorization(s) Medicaid [id number] Social History Type Description Quantity Date Captured [...] Medications Administered Medication Instructions Dosage Effective Dates Status Comments (start - stop) CYCLOBENZAPRINE 5 MG TAKE 1 TABLET BY - No Longer TABLET ORAL ROUTE 3 TIMES Active EVERY DAY Instructions Date Instruction Additional Information No information Assessments Type Assessment Date No information Goals Health Concern Goal Type Priority Status Date No information Medical Equipment Description Device [place] Device Identifier Effective Dates (start - stop ) Status No information Mental Status Date Cognitive Assessment No information Health Concerns Observation Date No information Concern Status Date No information
--- OUTSIDE RECORDS SUMMARY | 2018-02-21 05:12 | XMS REPORT | Continuity of Care Document ---
:1955 Author Organization [facility] Address [address] [place], [place] [id number] Care Team Providers Name Role Phone Tanisha Conroy MD Unavailable Unavailable Allergies, Adverse Reactions, Alerts Substance Reaction Status No information Medications Medication Instructions Dosage Effective Dates (start - stop) Status Comments No information Problems Condition Effective Dates (start - stop) [...] Encounter Shanika Voss [facility] Tanisha. [facility] [address] Services, [facility] [facility] [address], . [place], tel:[phone] Shanika, [address] [place], [phone], Family History Family Member Diagnosis Age At Onset Mother Stroke Mother Hypertension Brother Osteoarthritis Father Depression Family history of Hypertension Father Hypertension Brother Hypertension Father OCD Family history of Diabetes mellitus Mother Hyperlipidemia Immunizations Vaccine Date Status Comments No information Payers Payer name Insurance type Covered constitution party ID Authorization(s) Medicaid MC [id number] Social History Type Description Quantity Date Captured [...] Date No information Medical Equipment Description Device [place] Device Identifier Effective Dates (start - stop ) Status No information Mental Status Date Cognitive Assessment No information Health Concerns Observation Date No information Concern Status Date No information
--- OUTSIDE RECORDS SUMMARY | 2018-02-21 05:12 | XMS REPORT | Continuity of Care Document ---
:[address] [facility] Address [address] [place], [place] [id number] Care Team Providers Name Role Phone Tanisha Conroy MD Unavailable Unavailable Allergies, Adverse Reactions, Alerts Substance Reaction Status No information Medications Medication Instructions Dosage Effective Dates Status Comments (start - stop) BD Insulin Syringe USE DIRECTED - Active Type 2 DM, Ultra-Fine 0.3 mL 31 ICD-10: E11.9 gauge x 5/16" Problems Condition Effective Dates [...] For Visit Copied on Encounter Shanika Voss [facility] Tanisha. [facility] [address] Services, [facility] [address] [facility], [address], . [place], tel:[phone] Shanika, [address] [place], [phone], Family History Family Member Diagnosis Age At Onset Mother Stroke Mother Hypertension Brother Osteoarthritis Father Depression Family history of Hypertension Father Hypertension Brother Hypertension Father OCD Family history of Diabetes mellitus Mother Hyperlipidemia Immunizations Vaccine Date Status Comments No information Payers Payer name Insurance type Covered republican ID Authorization(s) Medicaid [id number] Social History Type Description Quantity Date Captured [...] Date No information Medical Equipment Description Device [place] Device Identifier Effective Dates (start - stop ) Status No information Mental Status Date Cognitive Assessment No information Health Concerns Observation Date No information Concern Status Date No information
--- OUTSIDE RECORDS SUMMARY | 2018-02-21 05:12 | XMS REPORT | Continuity of Care Document ---
:1955 Author Organization [facility] Address [address] [place], [place] [id number] Care Team Providers Name Role Phone Tanisha Conroy MD Unavailable Unavailable Allergies, Adverse Reactions, Alerts Substance Reaction Status No information Medications Medication Instructions Dosage Effective Dates Status Comments (start - stop) HUMULIN R 100 INJECT PER SLIDING - Active UNITS/ML VIAL SCALE DIRECTED VALACYCLOVIR HCL 500 TAKE 1 TABLET BY 500 MG - Active MG TABLET MOUTH EVERY DAY DIRECTED BD INS SYRNG UF 0.3 USE DIRECTED - No Longer ML [id number] Active Problems Condition Effective Dates (start - stop) [...] on Encounter Shanika Voss [facility] -2017 Tanisha. [facility] [address] Services, [facility] [address] [facility] Shanika [facility], [address], . [place], tel:[phone] Shanika, [address] [place], [phone], Family History Family Member Diagnosis Age At Onset Mother Stroke Mother Hypertension Brother Osteoarthritis Father Depression Family history of Hypertension Father Hypertension Brother Hypertension Father OCD Family history of Diabetes mellitus Mother Hyperlipidemia Immunizations Vaccine Date Status Comments No information Payers Payer name Insurance type Covered democrat ID Authorization(s) Medicaid [id number] Social History Type Description Quantity Date Captured [...] Date No information Medical Equipment Description Device [place] Device Identifier Effective Dates (start - stop ) Status No information Mental Status Date Cognitive Assessment No information Health Concerns Observation Date No information Concern Status Date No information
[2018-02-21] MEDS ORDERED: Ondansetron INJ* 2 MG/ML VIAL IV ONE (05:18)
[2018-02-21] MEDS ORDERED: Morphine VIAL* 4 MG/ML VIAL (1 ml vial) IV ONE (05:18)
[2018-02-21 05:19] LABS: ABS Basophils 0 10^3/ul (0-0.2); ABS Eosinophils 0.1 10^3/ul (0-0.6); ABS Monocytes 0.4 10^3/ul (0-0.8); ABS Neutrophils 2.5 10^3/ul (1.5-7.7); ABS Nucleated RBC 0 10^3/ul; Eosinophil % 2.5 % (0-6); Hematocrit 43 % (35-47); Hemoglobin 14.2 g/dl (12.0-16.0); Lymphocyte % 39.5 % (25-47); Mean Corpuscular HGB Conc 33 g/dl (31-36); Mean Corpuscular Hemoglobin 31 pg (27-31); Mean Corpuscular Volume 94 fL (80-97); Mean Platelet Volume 6.7 um3 (7.4-10.4); Nucleated Red Blood Cells % 0.1; Platelet Count 368 10^3/ul (150-450); Red Blood Count 4.55 10^6/ul (4.00-5.40); Red Cell Distribution Width 14 % (10.5-15); White Blood Count 5.2 10^3/ul (3.5-10.8)
[2018-02-21] MEDS ORDERED: Morphine VIAL* 10 MG/ML 1 ML VIAL ONE (05:23)
--- NOTE | 2018-02-21 05:23 | ED ---
Abdominal Pain/Female - HPI Summary HPI Summary: This is scribe Keo Atkinson documenting for attending Dr. Gurjit Rai MD. This patient is a 62 year old F BIBA with a chief complaint of abd pain since this afternoon. Pt is visibly intoxicated in the ER, yelled her name and phone number over and over. EMS reports that she has had over a half bottle of vodka since noon. Patient reports dysuria. Patient denies vomiting or difficulty passing stool. Earlier this month she was in the ED and was diagnosed with gall stones, which felt similar to this. Pt reports that she felt a lot better after her last hospitalization until two days ago, where she could not stand from the pain. PMHx gallstones. PMHx abd surgeries. I, Dr. Rai, personally performed the services described in this documentation as scribed in my presence and it is both accurate and complete. - History of Current Complaint Chief Complaint: EDAbdPain Stated Complaint: ABD PAIN Time Seen by Provider: 02/21/18 04:53 Hx Obtained From: Patient Onset/Duration: Sudden Onset, Lasting Days - 1 Timing: Constant Severity Initially: Moderate Severity Currently: Moderate Pain Intensity: 6 Pain Scale Used: 0-10 Numeric Associated Signs and Symptoms: Positive: Urinary Symptoms. Negative: Vomiting Allergies/Adverse Reactions: Allergies Allergy/AdvReac Type Severity Reaction Status Date / Time aspirin Allergy Hives Verified 02/01/18 18:58 hydrocodone Allergy Hives Verified 02/21/18 05:06 PMH/Surg Hx/FS Hx/Imm Hx Endocrine/Hematology History: Reports: Hx Diabetes Cardiovascular History: Reports: Hx Hypercholesterolemia, Hx Hypertension Respiratory History: Denies: Hx Asthma GI History: Reports: Other GI Disorders - gastric bypass surgery Sensory History: Reports: Hx Contacts or Glasses Denies: Hx Hearing Aid Opthamlomology History: Reports: Hx Contacts or Glasses - Surgical History Surgery Procedure, Year, and Place: Eight hernia surgeries, gastric bypass Infectious Disease History: No Infectious Disease History: Denies: Traveled Outside the [place] in Last 30 Days - Family History Known Family History: Positive: Diabetes, Other - Brain Tumor - Father - Social History Alcohol Use: Weekly Alcohol Amount: 3-5 per week Substance Use Type: Reports: None Hx Tobacco Use: No Smoking Status (MU): Former Smoker Review of Systems Negative: Fever Positive: Abdominal Pain. Negative: Vomiting Positive: dysuria. Negative: incontinence All Other Systems Reviewed And Are Negative: Yes Physical Exam - Summary Physical Exam Summary: Appearance: Well-appearing, Well-nourished, lying in bed comfortably Skin: Warm, dry, no obvious rash Eyes: sclera anicteric, no conjunctival pallor ENT: mucous membranes moist, pharynx appears normal Neck: Supple, nontender Respiratory: Clear to auscultation, no signs of respiratory distress Cardiovascular: Normal S1, S2. No murmurs. Normal distal pulses in tibial and radial bilaterally. Abdomen: Soft, nontender, normal active bowel sounds present Musculoskeletal: Normal, Strength/ROM Intact Neurological: A&Ox3, awake and alert, mentation is normal, speech is fluent and appropriate Psychiatric: affect is normal, does not appear anxious or depressed Triage Information Reviewed: Yes Vital Signs On Initial Exam: Initial Vitals Temp Pulse Resp BP Pulse Ox 98.9 F 79 18 170/89 98 02/21/18 04:58 02/21/18 04:58 02/21/18 04:58 02/21/18 04:58 02/21/18 04:58 Vital Signs Reviewed: Yes Diagnostics - Vital Signs Vital Signs Temp Pulse Resp BP Pulse Ox 02/21/18 04:58 98.9 F 79 18 170/89 98 - Laboratory Result Diagrams: 02/21/18 05:06 02/21/18 05:06 Lab Statement: Any lab studies that have been ordered have been reviewed, and results considered in the medical decision making process. Abdominal Pain Fem Course/Dx - Diagnoses Provider Diagnoses: Gallstone, Alcohol intoxication Discharge - Sign-Out/Discharge Documenting (check all that apply): Sign-Out Patient Signing out patient TO: Kathia Hawley - Awaiting US Receiving patient FROM: Gurjit Rai - Discharge Plan Condition: Stable Disposition: HOME Patient Education Materials: Gallstones (ED), Alcohol Intoxication (ED) Referrals: [facility] [place] [facility] [Outside] Additional Instructions: Follow up with your primary care physician in 1-3 days. RETURN TO THE EMERGENCY DEPARTMENT FOR NEW OR WORSENING SYMPTOMS - Billing Disposition and Condition Condition: STABLE Disposition: Home - Attestation Statements Document Initiated by Scribe: Yes Documenting Scribe: Keo Atkinson Provider For Whom Scribe is Documenting (Include Credential): Gurjit Rai Scribe Attestation: Keo Galvan, scribed for Gurjit Rai on 02/22/18 at 0622. Scribe Documentation Reviewed: Yes Provider Attestation: The documentation as recorded by the scribe, Keo Atkinson accurately reflects the service I personally performed and the decisions made by me, Gurjit Rai
[2018-02-21] MEDS ORDERED: Morphine VIAL* 10 MG/ML 1 ML VIAL IV ONE (05:25)
[2018-02-21 05:32] LABS: Urine Appearance Clear; Urine Blood Negative (Negative); Urine Color Straw; Urine Ketones Negative (Negative); Urine Protein Negative (Negative); Urine Specific Gravity 1.003 (1.010-1.030); Urine Urobilinogen Negative (Negative)
[2018-02-21 05:37] LABS: EGFR Non-African American 92.7 (>60)
--- NOTE | 2018-02-21 07:46 | ED ---
Progress - Progress Note Progress Note: Pt was signed out from Dr. Rai upon shift change pending US gall bladder and disposition. - Results/Orders Results/Orders: DIAG US Gallbladder US reveals, per radiologist, 1. Cholelithiasis without signs of biliary obstruction or acute inflammatory change. 2. Likely hepatic steatosis. ED physician has reviewed this radiology report. Re-Evaluation - Re-Evaluation First Eval Re-Evaluation Time: 10:50 Change: Unchanged Comment: Discussed results and plan of care with pt. She was already aware of the US results. She was given a breakfast tray, and ate this without difficulty. We will walk her, to check her gait. Second Eval Re-Evaluation Time: 11:05 Change: Improved Comment: Pt is alert and oriented. She ambulated without difficulty. She is clinically sober at this time. Course/Dx - Course Course Of Treatment: This patient is a 62 year old female BIBA to [facility] for a chief complaint of abdominal pain. Gallbladder US reveals, per radiologist, 1. Cholelithiasis without signs of biliary obstruction or acute inflammatory change. 2. Likely hepatic steatosis. Blood work and UA obtained. I discussed results with patient and she reports feeling better. She is hemodynamically stable and safe for discharge. Strict return precautions given and she will otherwise follow up with her PCP. - Diagnoses Provider Diagnoses: Gallstone, Alcohol intoxication Discharge - Sign-Out/Discharge Documenting (check all that apply): Patient Departure - Discharge home, Receiving Sign-Out Receiving patient FROM: Gurjit Rai - Upon shift change pending US gall bladder and disposition - Discharge Plan Condition: Stable Disposition: HOME Patient Education Materials: Gallstones (ED), Alcohol Intoxication (ED) Referrals: [facility] [place] [facility] [Outside] Additional Instructions: Follow up with your primary care physician in 1-3 days. RETURN TO THE EMERGENCY DEPARTMENT FOR NEW OR WORSENING SYMPTOMS - Billing Disposition and Condition Condition: STABLE Disposition: Home - Attestation Statements Document Initiated by Scribe: Yes Documenting Scribe: Darcy Bryant Provider For Whom Paras is Documenting (Include Credential): Kathia Hawley MD Scribe Attestation: Darcy Galvan, scribed for Kathia Hawley MD on 02/21/18 at 1519. Scribe Documentation Reviewed: Yes Provider Attestation: The documentation as recorded by the Darcy hair accurately reflects the service I personally performed and the decisions made by me, Kathia Hawley MD
--- NOTE | 2018-02-21 08:38 | RAD ---
HISTORY: Abdominal pain in a patient with known cholelithiasis COMPARISONS: Similar ultrasound exam dated February 02, 2018 TECHNIQUE: Multiple transverse and longitudinal ultrasound images were obtained of the right upper quadrant. FINDINGS: LIVER: The liver exhibits increased and homogenous echogenicity. There are no focal liver masses. Liver measures 17.4 cm in greatest cephalocaudal dimension. Normal hepatic and portal venous blood flow is duplicated with color flow imaging. There is no gross intrahepatic biliary duct dilatation. GALLBLADDER AND EXTRAHEPATIC BILIARY DUCT: Similar to the prior ultrasound there are multiple dependent shadowing stones in the gallbladder lumen. There is no pericholecystic fluid or gallbladder wall thickening. The common bile duct measures a maximum diameter of 3 mm. PANCREAS: The portions of the pancreas not obscured by bowel gas are normal in appearance. RIGHT KIDNEY: The right kidney is normal in size, morphology and echogenicity. AORTA AND IVC: The visualized portions are normal in appearance and not pathologically dilated. IMPRESSION: 1. CHOLELITHIASIS WITHOUT SIGNS OF BILIARY OBSTRUCTION OR ACUTE INFLAMMATORY CHANGE. 2. LIKELY HEPATIC STEATOSIS.
[2018-02-21] MEDS ORDERED: Lisinopril TAB* 10 MG PO ONE (11:04)
[2018-02-21 12:25] VITALS: BP 162/82
== END 2018-02-21 12:24 | disposition home or self-care (01) ==
LOC: ED 04:52
DX: K80.80 Other cholelithiasis without obstruction (principal); F10.129 Alcohol abuse with intoxication, unspecified; E11.9 Type 2 diabetes mellitus without complications; E78.00 Pure hypercholesterolemia, unspecified; I10 Essential (primary) hypertension; Z87.891 Personal history of nicotine dependence
CPT/HCPCS: 36415; 76705; 80053; 80320; 81003; 83690; 85025; 96361; 96374; 96375; 96376; 99282; A9270-GY; G0480; J2270; J2405

== ENCOUNTER 2018-06-30 18:34 | Observation (INO) | payer MEDICAID ==
[2018-06-30] MEDS ORDERED: NS 0.9% 1000 ML** 2,000 ML IV ONE (18:52)
[2018-06-30 19:10] LABS: ABS Basophils 0 10^3/ul (0-0.2); ABS Eosinophils 0.1 10^3/ul (0-0.6); ABS Lymphocytes 1.9 10^3/ul (1.0-4.8); ABS Monocytes 0.4 10^3/ul (0-0.8); ABS Neutrophils 6.3 10^3/ul (1.5-7.7); ABS Nucleated RBC 0 10^3/ul; Eosinophil % 1.1 %; Hematocrit 34 % (35-47); Hemoglobin 11.3 g/dl (12.0-16.0); Lymphocyte % 21.4 %; Mean Corpuscular HGB Conc 33 g/dl (31-36); Mean Corpuscular Hemoglobin 30 pg (27-31); Mean Corpuscular Volume 89 fL (80-97); Mean Platelet Volume 7.5 fL (7.4-10.4); Nucleated Red Blood Cells % 0; Platelet Count 299 10^3/ul (150-450); Red Blood Count 3.84 10^6/ul (4.00-5.40); Red Cell Distribution Width 14 % (10.5-15); White Blood Count 8.7 10^3/ul (3.5-10.8)
[2018-06-30 19:33] LABS: Albumin 3.9 g/dL (3.2-5.2); Albumin/Globulin Ratio 2.1 (1-3); BUN/Creatinine Ratio 20.7 (8-20); Calcium 8.2 mg/dL (8.6-10.3); EGFR African American 85.8 (>60); EGFR Non-African American 70.9 (>60); Globulin 1.9 g/dL (2-4); Total Bilirubin 0.3 mg/dL (0.2-1.0); Total Protein 5.8 g/dL (6.4-8.9)
[2018-06-30] MEDS ORDERED: Iodixanol* (CONTRAST) 320 MG/ML 100 ML SDV IV ONE (19:37)
--- NOTE | 2018-06-30 20:08 | ED ---
Head Injury - HPI Summary HPI Summary: Pt is a 62 y/o F presenting to the ED brought in by EMS for a fall. LEVEL 5 CAVEAT: History and physical are limited due to the pt not being able to recall much of what happened. She fell in the basement onto the concrete, struck her R scapula and the back of her head where she developed a hematoma which she incised with a kitchen knife. She became lightheaded and dizzy. Pt presently complains of pain in R upper back. - History Of Current Complaint Chief Complaint: EDHeadInjury Stated Complaint: FALL/LAC TO BACK OF HEAD Time Seen by Provider: 06/30/18 18:49 Hx Obtained From: Patient Hx From Patient Unobtainable Due To: Other - unable to recall Mechanism Of Injury: Fall From A Standing Position Onset/Duration: Started Hours Ago Onset of Pain: Immediate Severity Currently: Severe Severity Initially: Severe Pain Intensity: 97 Pain Scale Used: 0-10 Numeric Location of Head Injury: Occipital Character: Sharp Aggravating Factor(s): Movement Alleviating Factor(s): Rest Associated Signs And Symptoms: LOC Duration Unknown, Memory Loss, Bruising, Headache - Allergies/Home Medications Allergies/Adverse Reactions: Allergies Allergy/AdvReac Type Severity Reaction Status Date / Time aspirin Allergy Hives Verified 06/30/18 20:34 hydrocodone Allergy Hives Verified 06/30/18 20:34 Home Medications: Home Medications Valacyclovir HCl [Valacyclovir] 1 tab PO DAILY 06/30/18 [History Confirmed 06/30] PMH/Surg Hx/FS Hx/Imm Hx Previously Healthy: No Endocrine/Hematology History: Reports: Hx Diabetes Cardiovascular History: Reports: Hx Hypercholesterolemia, Hx Hypertension Respiratory History: Denies: Hx Asthma GI History: Reports: Other GI Disorders - gastric bypass surgery Sensory History: Reports: Hx Contacts or Glasses Denies: Hx Hearing Aid Opthamlomology History: Reports: Hx Contacts or Glasses - Surgical History Surgery Procedure, Year, and Place: Eight hernia surgeries, gastric bypass Infectious Disease History: No Infectious Disease History: Denies: Traveled Outside the [place] in Last 30 Days - Family History Known Family History: Positive: Diabetes, Other - Brain Tumor - Father - Social History Alcohol Use: Weekly Alcohol Amount: 3-5 per week Substance Use Type: Reports: None Hx Tobacco Use: No Smoking Status (MU): Former Smoker Review of Systems Negative: Fever Positive: Arthralgia - R upper back and head pain Positive: Other - hematoma on head Positive: Headache All Other Systems Reviewed And Are Negative: Yes Physical Exam - Summary Physical Exam Summary: Appearance: Well-appearing, Well-nourished, lying in bed comfortably Skin: Warm, dry, no obvious rash Eyes: sclera anicteric, no conjunctival pallor ENT: mucous membranes moist, pharynx appears normal Neck: Supple, nontender Respiratory: Clear to auscultation, no signs of respiratory distress Cardiovascular: Normal S1, S2. No murmurs. Normal distal pulses in tibial and radial bilaterally. Hypotensive. Abdomen: Soft, nontender, normal active bowel sounds present Musculoskeletal: Tender around R scapula without any bruising noted, large hematoma with minimal active bleeding on occipital scalp. Neurological: awake and alert, mentation is normal, speech is fluent and appropriate Psychiatric: affect is normal, does not appear anxious or depressed GCS: 15 Triage Information Reviewed: Yes Vital Signs On Initial Exam: Initial Vitals Temp Pulse Resp BP Pulse Ox 97 F 63 20 74/33 97 06/30/18 18:58 06/30/18 18:58 06/30/18 18:58 06/30/18 18:58 06/30/18 18:58 Vital Signs Reviewed: Yes Completion Of Physical Exam Limited Due To: Level 5 Diagnostics - Vital Signs Vital Signs Temp Pulse Resp BP Pulse Ox 06/30/18 19:31 83 21 111/56 93 06/30/18 19:25 81 27 102/52 96 06/30/18 19:20 72 17 89/35 93 06/30/18 19:19 73 23 90 06/30/18 19:18 69 19 63/29 91 06/30/18 18:58 97 F 63 20 74/33 97 - Laboratory Lab Results: Lab Results 06/30/18 06/30/18 06/30/18 Range/Units 19:03 19:03 19:03 WBC 8.7 (3.5-10.8) 10^3/ul RBC 3.84 L (4.00-5.40) 10^6/ul Hgb 11.3 L (12.0-16.0) g/dl Hct 34 L (35-47) % MCV 89 (80-97) fL MCH 30 (27-31) pg MCHC 33 (31-36) g/dl RDW 14 (10.5-15) % Plt Count 299 (150-450) 10^3/ul MPV 7.5 (7.4-10.4) fL Neut % (Auto) 72.7 % Lymph % (Auto) 21.4 % [place] % (Auto) 4.3 % Eos % (Auto) 1.1 % Baso % (Auto) 0.5 % Absolute Neuts (auto) 6.3 (1.5-7.7) 10^3/ul Absolute Lymphs (auto) 1.9 (1.0-4.8) 10^3/ul Absolute Monos (auto) 0.4 (0-0.8) 10^3/ul Absolute Eos (auto) 0.1 (0-0.6) 10^3/ul Absolute Basos (auto) 0 (0-0.2) 10^3/ul Absolute Nucleated RBC 0 10^3/ul Nucleated RBC % 0 Sodium 136 (135-145) mmol/L Potassium 4.0 (3.5-5.0) mmol/L Chloride 103 (101-111) mmol/L Carbon Dioxide 22 (22-32) mmol/L Anion Gap 11 (2-11) mmol/L BUN 17 (6-24) mg/dL Creatinine 0.82 (0.51-0.95) mg/dL Est GFR ( Amer) 85.8 (>60) Est GFR (Non-Af Amer) 70.9 (>60) BUN/Creatinine Ratio 20.7 H (8-20) Glucose 193 H (70-100) mg/dL Lactic Acid 4.5 H* (0.5-2.0) mmol/L Calcium 8.2 L (8.6-10.3) mg/dL Total Bilirubin 0.30 (0.2-1.0) mg/dL AST 24 (13-39) U/L ALT 24 (7-52) U/L Alkaline Phosphatase 81 (34-104) U/L Total Protein 5.8 L (6.4-8.9) g/dL Albumin 3.9 (3.2-5.2) g/dL Globulin 1.9 L (2-4) g/dL Albumin/Globulin Ratio 2.1 (1-3) Serum Alcohol 199 H (<10) mg/dL Blood Type Antibody Screen 06/30/18 Range/Units 19:03 WBC (3.5-10.8) 10^3/ul RBC (4.00-5.40) 10^6/ul Hgb (12.0-16.0) g/dl Hct (35-47) % MCV (80-97) fL MCH (27-31) pg MCHC (31-36) g/dl RDW (10.5-15) % Plt Count (150-450) 10^3/ul MPV (7.4-10.4) fL Neut % (Auto) % Lymph % (Auto) % [place] % (Auto) % Eos % (Auto) % Baso % (Auto) % Absolute Neuts (auto) (1.5-7.7) 10^3/ul Absolute Lymphs (auto) (1.0-4.8) 10^3/ul Absolute Monos (auto) (0-0.8) 10^3/ul Absolute Eos (auto) (0-0.6) 10^3/ul Absolute Basos (auto) (0-0.2) 10^3/ul Absolute Nucleated RBC 10^3/ul Nucleated RBC % Sodium (135-145) mmol/L Potassium (3.5-5.0) mmol/L Chloride (101-111) mmol/L Carbon Dioxide (22-32) mmol/L Anion Gap (2-11) mmol/L BUN (6-24) mg/dL Creatinine (0.51-0.95) mg/dL Est GFR ( Amer) (>60) Est GFR (Non-Af Amer) (>60) BUN/Creatinine Ratio (8-20) Glucose (70-100) mg/dL Lactic Acid (0.5-2.0) mmol/L Calcium (8.6-10.3) mg/dL Total Bilirubin (0.2-1.0) mg/dL AST (13-39) U/L ALT (7-52) U/L Alkaline Phosphatase (34-104) U/L Total Protein (6.4-8.9) g/dL Albumin (3.2-5.2) g/dL Globulin (2-4) g/dL Albumin/Globulin Ratio (1-3) Serum Alcohol (<10) mg/dL Blood Type O Positive Antibody Screen Negative Result Diagrams: 06/30/18 21:44 06/30/18 19:03 Lab Statement: Any lab studies that have been ordered have been reviewed, and results considered in the medical decision making process. - CT Brain CT CT Interpretation Completed By: Radiologist Summary of CT Findings: No acute intracranial abnormality. Chronic microvascular ischemic changes. Hematoma and laceration in the posterior parietal scalp. ED physician has reviewed this report. CT c-s CT Interpretation Completed By: Radiologist Summary of CT Findings: No acute intracranial abnormality. ED physician has reviewed this report. Chest/ABD CT CT Interpretation Completed By: Radiologist Summary of CT Findings: CHEST: Acute bilateral rib fractures. Acute fracture of the left anterior fifth through eighth ribs and acute fracture of the right anterior second rib. ABD: 1. No acute abdominal or pelvic abnormalities. 2. Nonacute findings as described above. ED physician has reviewed this report. - EKG 2237 Cardiac Rate: NL - 75bpm EKG Rhythm: Sinus Rhythm ST Segment: Normal Ectopy: None Re-Evaluation - Re-Evaluation 1st re-eval Change: Improved Comment: BP improved, pt is more coherent and conversational. CT reports pending. Lab studies do confirm clinical impression of alcohol intoxication and lactic acidosis. Head Injury Course/Dx - Diagnoses Provider Diagnoses: Scalp laceration, Hypotension due to blood loss, Alcohol intoxication Discharge - Sign-Out/Discharge Documenting (check all that apply): Patient Departure - Discharge Plan Condition: Stable Disposition: ADMITTED TO [facility] - Billing Disposition and Condition Condition: STABLE Disposition: Admitted to [facility] - Attestation Statements Document Initiated by Paras: Yes Documenting Scribe: Casandra Reddy Provider For Whom Paras is Documenting (Include Credential): Gurjit Rai MD. Scribe Attestation: Casandra Galvan, lindaed for Gurjit Rai MD. on 07/01/18 at 0232. Scribe Documentation Reviewed: Yes Provider Attestation: The documentation as recorded by the Casandra hair accurately reflects the service I personally performed and the decisions made by me, Gurjit Rai MD. Status of Scribe Document: Viewed Consult Consult: 9901 - Spoke with Dr. Stewart who will be accepting the pt to [facility].
--- OUTSIDE RECORDS SUMMARY | 2018-06-30 20:32 | XMS REPORT | Continuity of Care Document ---
:1955 Author Organization [facility] Address [address] [place], [place] [id number] Care Team Providers Name Role Phone Tanisha [...] For Visit Copied on Encounter Shanika [facility]oss [facility] [address] [facility], [facility] [address] [facility] [address], . [place], tel:[phone] Shanika, [address] [place], [phone], Family History Family Member Diagnosis Age At Onset Mother Stroke Mother Hypertension Brother Osteoarthritis Father Depression Family history of Hypertension Father Hypertension Brother Hypertension Father OCD Family history of Diabetes mellitus Mother Hyperlipidemia Immunizations Vaccine Date Status Comments No information Payers Payer name Insurance type Covered green party ID Authorization(s) Medicaid MC [id number] Social History Type Description Quantity Date Captured [...] Date No information Medical Equipment Description Device [place] Device Identifier Effective Dates (start - stop ) Status No information Mental Status Date Cognitive Assessment No information Health Concerns Observation Date No information Concern Status Date No information
--- OUTSIDE RECORDS SUMMARY | 2018-06-30 20:32 | XMS REPORT | Continuity of Care Document ---
:1955 Author Organization [facility] Address [address] [place], [place] [id number] Care Team Providers Name Role Phone Tanisha [...] For Visit Copied on Encounter Shanika [facility]oss [facility] [address] Services, [facility] [address] [facility] [address], . [place], tel:[phone] Shanika, [address] [place], [phone], Family History Family Member Diagnosis Age At Onset Mother Stroke Mother Hypertension Brother Osteoarthritis Father Depression Family history of Hypertension Father Hypertension Brother Hypertension Father OCD Family history of Diabetes mellitus Mother Hyperlipidemia Immunizations Vaccine Date Status Comments No information Payers Payer name Insurance type Covered libertarian ID Authorization(s) Medicaid MC [id number] Social History Type Description Quantity Date Captured [...] Date No information Medical Equipment Description Device [place] Device Identifier Effective Dates (start - stop ) Status No information Mental Status Date Cognitive Assessment No information Health Concerns Observation Date No information Concern Status Date No information
--- OUTSIDE RECORDS SUMMARY | 2018-06-30 20:32 | XMS REPORT | Continuity of Care Document ---
:1955 Author Organization [facility] Address [address] [place], [place] [phone] Care Team Providers Name Role Phone Tanisha [...] Visit Copied on Encounter Shanika Voss [facility] -2017 Tanisha. [facility] [address] Services, [facility] [address] [facility] [address], . [place], tel:[phone] [place], [address] [place], [phone], Family History Family Member Diagnosis Age At Onset Mother Stroke Mother Hypertension Brother Osteoarthritis Father Depression Family history of Hypertension Father Hypertension Brother Hypertension Father OCD Family history of Diabetes mellitus Mother Hyperlipidemia Immunizations Vaccine Date Status Comments No information Payers Payer name Insurance type Covered libertarian ID Authorization(s) Medicaid [id number] Social History Type Description Quantity Date Captured [...] Date No information Medical Equipment Description Device [place] Device Identifier Effective Dates (start - stop ) Status No information Mental Status Date Cognitive Assessment No information Health Concerns Observation Date No information Concern Status Date No information
--- OUTSIDE RECORDS SUMMARY | 2018-06-30 20:32 | XMS REPORT | Continuity of Care Document ---
:[address] [facility] Address [address] [place], [place] [phone] Care Team Providers Name Role Phone Tanisha Conroy MD Unavailable Unavailable Allergies, Adverse Reactions, Alerts Substance Reaction Status No information Medications Medication Instructions Dosage Effective Dates Status Comments (start - stop) Humulin R Regular INJECT PER SLIDING - Active U-100 Insulin 100 SCALE DIRECTED unit/mL injection solution Lovaza 1 gram TAKE 2 CAPSULES BY - Active capsule MOUTH TWICE A DAY Byetta 5 mcg/dose INJECT 0.02 ML (5 - Active (250 mcg/mL)1.2 mL MCG) SUBCUTAEOUS subcutaneous pen TWICE DAILY IN THE injector MORNING AND EVENING BEFORE MEALS omeprazole 20 mg take 1 capsule by 20 MG - Active capsule,delayed oral route every release day before a meal Miralax 17 TAKE (17G) BY ORAL - Active gram/dose oral ROUTE EVERY DAY powder MIXED WITH 8 OZ. WATER, JUICE, SODA, COFFEE OR TEA folic acid 0.8 mg one tab po qday. - Active capsule Precision Xtra Test test 2 by 2 - No Longer strips Intradermal route Active test twice a day and prn Vitamin D2 50,000 take 1 [place] [address] UNITS - No Longer unit capsule oral route every Active week Problems Condition Effective Dates (start - stop) Clinical Status Comments No information Procedures Procedure Date No information Results Test Name Date and Time Measure Units Reference Range Abnormal Flag Status Comments No information Advance Directives Directive Yes / No Effective Date File Name No information Encounters Encounter Practice Location Reason(s) Diagnoses Date Provider Providers Description For Visit Copied on Encounter Shanika Voss [facility] Tanisha. [facility] [address] Services, [facility] [address], [place], [address], [place]. [place], tel:[phone] Shanika, [address] [place], [phone], Family History Family Member Diagnosis Age At Onset Mother Stroke Mother Hypertension Brother Osteoarthritis Father Depression Family history of Hypertension Father Hypertension Brother Hypertension Father OCD Family history of Diabetes mellitus Mother Hyperlipidemia Immunizations Vaccine Date Status Comments No information Payers Payer name Insurance type Covered libertarian ID Authorization(s) Medicaid MC [id number] Social History Type Description Quantity Date Captured [...] Date No information Medical Equipment Description Device [place] Device Identifier Effective Dates (start - stop ) Status No information Mental Status Date Cognitive Assessment No information Health Concerns Observation Date No information Concern Status Date No information
--- OUTSIDE RECORDS SUMMARY | 2018-06-30 20:32 | XMS REPORT | Continuity of Care Document ---
:1955 Author Organization [facility] Address [address] [place], [place] [phone] Care Team Providers Name Role Phone Tanisha Conroy MD Unavailable Unavailable Allergies, Adverse Reactions, Alerts Substance Reaction Status No information Medications Medication Instructions Dosage Effective Dates Status Comments (start - stop) DIFLUCAN 150 MG TAKE 1 TABLET BY MOUTH - Active TABLET ONCE Problems Condition Effective Dates (start - stop) Clinical Status Comments No information Procedures Procedure Date No information Results Test Name Date and Time Measure Units Reference Range Abnormal Flag Status Comments No information Advance Directives Directive Yes / No Effective Date File Name No information Encounters Encounter Practice Location Reason(s) Diagnoses Date Provider Providers Description For Visit Copied on Encounter Shanika Voss [facility] -2017 Tanisha. [facility] [address] Services, [facility] [address] [facility] [address], . [place], tel:[phone] Shanika, [address] [place], [phone], Family History Family Member Diagnosis Age At Onset Mother Stroke Mother Hypertension Brother Osteoarthritis Father Depression Family history of Hypertension Father Hypertension Brother Hypertension Father OCD Family history of Diabetes mellitus Mother Hyperlipidemia Immunizations Vaccine Date Status Comments No information Payers Payer name Insurance type Covered democrat ID Authorization(s) Medicaid [id number] Social History Type Description Quantity Date Captured [...] Date No information Medical Equipment Description Device [place] Device Identifier Effective Dates (start - stop ) Status No information Mental Status Date Cognitive Assessment No information Health Concerns Observation Date No information Concern Status Date No information
--- OUTSIDE RECORDS SUMMARY | 2018-06-30 20:32 | XMS REPORT | Continuity of Care Document ---
:1955 Author Organization [facility] Address [address] [place], [place] [phone] Care Team Providers Name Role Phone Tanisha [...] For Visit Copied on Encounter [facility] [address] Services, [facility] [address] [facility] [address], . [place], tel:[phone] Shanika, [address] [place], [phone], Family History Family Member Diagnosis Age At Onset Mother Stroke Mother Hypertension Brother Osteoarthritis Father Depression Family history of Hypertension Father Hypertension Brother Hypertension Father OCD Family history of Diabetes mellitus Mother Hyperlipidemia Immunizations Vaccine Date Status Comments No information Payers Payer name Insurance type Covered constitution party ID Authorization(s) Medicaid MC [id number] Social History Type Description Quantity Date Captured [...] Date No information Medical Equipment Description Device [place] Device Identifier Effective Dates (start - stop ) Status No information Mental Status Date Cognitive Assessment No information Health Concerns Observation Date No information Concern Status Date No information
[2018-06-30] MEDS ORDERED: oxyCODONE/Acetamin 5/325 MG* TAB PO ONE (20:46)
[2018-06-30 21:50] LABS: Hematocrit 36 % (35-47); Hemoglobin 11.6 g/dl (12.0-16.0)
[2018-06-30] MEDS ORDERED: oxyCODONE/Acetamin 5/325 MG* TAB PO PRN (22:30)
[2018-06-30] MEDS ORDERED: Al Hydrox/Mg Hydrox/Simet LIQ* 30 ML UDC PO PRN (22:30)
[2018-06-30] MEDS ORDERED: Docusate CAP* 100 MG PO PRN (22:30)
[2018-06-30] MEDS ORDERED: Ondansetron INJ* 2 MG/ML VIAL IV PRN (22:30)
[2018-06-30] MEDS ORDERED: Senna TAB PO PRN (22:30)
[2018-06-30] MEDS ORDERED: Tetan/Diph/Pertus SYR(Tdap)* 0.5 ML SYR(BOOSTRIX) use SYR IM ONE (22:32)
[2018-06-30] MEDS ORDERED: ceFAZolin 1 GM ADVAN(*) 1 GM in NS 0.9% 50 ML* 50 ML IVPB ONE (22:33)
[2018-06-30] MEDS ORDERED: Thiamine IV* 100 MG/ML 2 ML VIAL IM ONE (22:35)
[2018-06-30] MEDS ORDERED: Polyethylene Glycol 3350* 17 GM PACKET PO PRN (22:36)
[2018-06-30] MEDS ORDERED: Dextrose 50% Syringe 50 ML* 25 GM/50 ML SYRINGE IV PUSH PRN (22:36)
[2018-06-30] MEDS ORDERED: hydrOXYzine HCL TAB* 50 MG PO PRN (22:36)
[2018-06-30] MEDS ORDERED: Cyclobenzaprine TAB* 10 MG PO PRN (22:36)
[2018-06-30 23:29] LABS: TSH (Thyroid Stimulating Horm) 2.39 mcIU/mL (0.34-5.60)
[2018-06-30] MEDS ORDERED: LORazepam TAB(*) 1 MG PO SCH (23:30)
[2018-06-30] MEDS ORDERED: Lidocaine PATCH 5%* 1 PATCH TRANSDERM SCH (23:45)
--- NOTE | 2018-07-01 01:22 | HP ---
HISTORY AND PHYSICAL: DATE OF ADMISSION: 06/30/18 TIME OF EVALUATION: 0 PRIMARY CARE PHYSICIAN: The patient does not have a primary care physician. CHIEF COMPLAINT: Fall. HISTORY OF PRESENT ILLNESS: This is a 62-year-old female with past medical history of alcohol abuse and chronic pain, who presents to the emergency room after having a fall. The patient lives at home with her mother and the mother' s aide. She states she fell 2 weeks ago and developed left-sided rib pain at that time. She denied drinking during that time. She took 3 to 4 shots this afternoon to help numb the rib pain. She was down in her basement, she fell on a slab of concrete and she landed on her left shoulder, her right shoulder, and hit her head. She states she had a large bruise in the back of her head so she went upstairs and warmed up a kitchen knife and opened up the area. She does not sure who called the EMS but EMS arrived and she states she felt better when she took the pressure away. When she arrived, she was hypotensive, blood pressure was low in the 60s. She got 3 L of fluid with good response. Her head injury did develop hemostasis with a stabilizing H and H without any intervention. No norma were placed. She is complaining of left arm and shoulder pain. She is hungry and nauseated. She was initially noncompliant about putting a Pascual in and then pulled it out. She is upset about her blood pressure cuff. She is agitated. It is hard to get a good history on her. She keeps complaining of several things going on. Otherwise, the patient states that it hurts to take a deep breath. Limited review of systems due to the patient's agitation. In the emergency room, the patient had labs, she was essentially amanda-scanned. She was given 2 L of fluid, a Percocet and referred to the hospitalist service. PAST MEDICAL HISTORY: 1. History of alcohol abuse. 2. GERD. 3. History of hypertension. 4. Chronic pain. 5. Constipation. 6. Diabetes. 7. Hyperlipidemia. MEDICATIONS: 1. Zofran 4 mg every 8 hours as needed. 2. Omeprazole 20 mg p.o. daily. 3. Valacyclovir 1 tab p.o. daily. 4. Lisinopril 10 mg daily. 5. Multivitamin daily. 6. Folic acid 1 mg daily. 7. Ferrous sulfate 325 mg p.o. daily. 8. Vitamin D 50,000 units weekly. 9. Cyclobenzaprine 5 mg p.o. t.i.d. p.r.n.. 10. Cyanocobalamin injection 1000 mcg IM monthly. 11. Thiamine 100 mg p.o. daily. 12. Pravastatin 20 mg p.o. daily. 13. MiraLAX 17 g daily as needed. 14. Piroxicam 10 mg p.o. t.i.d. with meals. 15. Hydroxyzine 25 mg p.o. daily as needed. 16. Soma 350 mg p.o. t.i.d. and 350 mg p.o. at bedtime. 17. Byetta 5 mcg subcu at 7:30 a.m. and 5 mcg subcu at 1630. 18. Tylenol 650 mg every 6 hours as needed. ALLERGIES: ASPIRIN, hives; HYDROCODONE, hives. FAMILY HISTORY: Mother is alive. Father , unclear of the etiology. SOCIAL HISTORY: As mentioned, the patient lives with her mother who is 87 and her aide. The patient did not want to designate a healthcare proxy. She states she only drinks on the weekends and she only drank today during the week because she was having rib pain. No history of drugs. She quit smoking in 2006. She is unemployed, applying for disability. Code status is full code. REVIEW OF SYSTEMS: A 14-point review of systems as mentioned in the HPI, otherwise negative. PHYSICAL EXAMINATION GENERAL: The patient is agitated, fidgeting and with several complaints. VITAL SIGNS: Temp 97, pulse rate 70, respiratory rate 15, oxygen saturation 96 % on room air, blood pressure 116/66. HEENT: Head: She does have a dried ecchymotic region in the posterior scalp with dry blood. No active bleeding. We are unable to visualize the extent of the laceration, but hemostasis is achieved. Pupils are dilated and reactive. Anicteric. Oropharynx: Mucous membranes moist. NECK: Supple. No lymphadenopathy. RESPIRATORY: Diminished breath sounds. No wheeze, rhonchi or rales. CARDIAC: Regular rate and rhythm. Soft systolic murmur heard throughout. ABDOMEN: Soft, nontender, and nondistended. EXTREMITIES: The patient with dry blood over her extremities and her face. She does have ecchymosis over her right shoulder with pain in the right shoulder joint with limited range of motion. NEUROLOGIC: No gross focal neurologic deficits. She is alert and oriented x2, oriented to self and time. She states she is in [facility]. LABORATORY DATA: White count 8.7; hemoglobin 11.3, repeat 3 hours later was 11.6; hematocrit 34, platelets 299. Sodium 136, potassium 4.0, chloride 103, bicarb 22, BUN 17, creatinine 0.82, glucose 193, lactic acid 4.5. Tox screen: Alcohol level of 199. RADIOGRAPHIC DATA: EKG shows normal sinus rhythm. Head CT shows no acute intracranial abnormality. Chronic microvascular ischemic change. Hematoma and laceration of the posterior parietal scalp. Cervical spine CT, no acute abnormality. Abdominal, pelvis, and chest CT, acute fracture of the left anterior 5th through 8th ribs, acute fracture of the right 2nd anterior rib, chronic fracture of the right anterior 7th and 8th ribs. No acute abdominal or pelvic abnormalities. ASSESSMENT: This is a 62-year-old female with past medical history of chronic pain, alcohol abuse, who presents to the emergency room after having a fall with hematoma, opened it up at home with significant bleeding and now with right shoulder pain. 1. Fall. Assessment: The patient with a positive alcohol level, I suspect this is related to alcohol abuse and probably polysubstance abuse as she takes Soma as well and Flexeril at home. She fell 2 weeks ago and suffered rib injuries at that time. Dr. Rai spoke with the radiologist who states that some of the rib fractures are calcified so the chronicity does not necessarily mean that it occurred on this encounter with her head injury. She does have hemostasis and her H and H is stable. No neuro deficits at this time, but complaining of pain in the right shoulder. Plan: We will admit her to [address] [place] [address] with neuro checks. I am going to give her a Tdap dose and give her prophylactic cefazolin for using the knife. I am going to do a shoulder x-ray as there is no comment on her shoulder in any of the CAT scans. I will check a urine tox screen, place her on incentive spirometer. I am going to try to limit narcotic use in the setting of her alcohol abuse and hold her Soma for now as this is a quite addictive medication. I will order a PT consult and depending on the shoulder would follow up with a Ortho as well. 2. Chronic medical problems: Alcohol abuse. I will place the patient on [facility] protocol, Social Work consult, may be a candidate for inpatient rehab if she is interested although she does not seem to think that she has a drinking problem. 3. Diabetes. We will place her on a lispro sliding scale, hold her Byetta. 4. Gastroesophageal reflux disease. Continue her omeprazole. 5. Hypertension. Continue her lisinopril. 6. FEN. Diabetic diet. 7. DVT prophylaxis. The patient scores moderate risk in the setting of her bleeding. We will place her on SCDs. 8. Code status. Full code. PATIENT TIME: Greater than 50 minutes was spent doing history and physical, more than half the time spent in direct patient contact. [id number]/[facility] #: [id number] TERESA
[2018-07-01] MEDS: Acetaminophen TAB* 325 MG PO PRN ×2 (02:15→15:55)
[2018-07-01 05:48] LABS: ABS Basophils 0 10^3/ul (0-0.2); ABS Eosinophils 0 10^3/ul (0-0.6); ABS Monocytes 0.5 10^3/ul (0-0.8); ABS Neutrophils 6.1 10^3/ul (1.5-7.7); ABS Nucleated RBC 0 10^3/ul; Eosinophil % 0.1 %; Hematocrit 31 % (35-47); Hemoglobin 10.4 g/dl (12.0-16.0); Lymphocyte % 13.3 %; Mean Corpuscular HGB Conc 34 g/dl (31-36); Mean Corpuscular Hemoglobin 29 pg (27-31); Mean Corpuscular Volume 88 fL (80-97); Mean Platelet Volume 7.6 fL (7.4-10.4); Nucleated Red Blood Cells % 0; Platelet Count 268 10^3/ul (150-450); Red Blood Count 3.55 10^6/ul (4.00-5.40); Red Cell Distribution Width 14 % (10.5-15); White Blood Count 7.7 10^3/ul (3.5-10.8)
[2018-07-01] MEDS ORDERED: Pantoprazole TAB * 40 MG TAB PO SCH (06:00)
[2018-07-01 06:05] LABS: BUN/Creatinine Ratio 28.6 (8-20); Calcium 8.2 mg/dL (8.6-10.3); EGFR African American 116.2 (>60); EGFR Non-African American 96.1 (>60)
[2018-07-01] MEDS: ceFAZolin 1 GM ADVAN(*) 1 GM in NS 0.9% 50 ML* 50 ML IVPB SCH ×2 (07:59→17:23)
[2018-07-01] MEDS ORDERED: Lisinopril TAB* 10 MG PO SCH (09:00)
[2018-07-01] MEDS ORDERED: Thiamine TAB* 100 MG TAB PO SCH (09:00)
[2018-07-01] MEDS ORDERED: VALACYCLOVIR 500 MG PO SCH (09:00)
[2018-07-01] MEDS ORDERED: Multivitamins/Minerals TAB PO SCH (09:00)
[2018-07-01] MEDS ORDERED: CMCS:Pravastatin (NF) 20 MG TAB PO SCH (09:00)
[2018-07-01] MEDS ORDERED: Folic Acid TAB* 1 MG PO SCH (09:00)
[2018-07-01 09:26] LABS: Urine Appearance Cloudy; Urine Bilirubin Negative (Negative); Urine Blood Negative (Negative); Urine Color Yellow; Urine Glucose 1+(50 mg/dL) (Negative); Urine Ketones 1+ (Negative); Urine Nitrite Negative (Negative); Urine Protein Negative (Negative); Urine Specific Gravity 1.031 (1.010-1.030); Urine Urobilinogen Negative (Negative)
[2018-07-01] MEDS: Insulin LISPRO* 1 UNITS UNIT SUBCUT SCH ×3 (09:41→17:41)
[2018-07-01 10:12] LABS: Barbiturates Urine Screen None Detected (None Detect); Benzodiazepine Urine Screen None Detected (None Detect); Urine Cannabinoids Screen None Detected (None Detect)
[2018-07-01] MEDS ORDERED: Lidocaine Patch REMOVE* 1 NOTE MISC PATCH OFF SCH (12:00)
[2018-07-01] MEDS ORDERED: Ibuprofen TAB* 600 MG PO PRN (15:03)
[2018-07-01 16:16] VITALS: BP 166/78
--- NOTE | 2018-07-01 21:02 | DS ---
CC: [facility].* DISCHARGE SUMMARY: DATE OF ADMISSION: 06/30/18. DATE OF DISCHARGE: 07/01/18. PRIMARY CARE PROVIDER: [facility]. ATTENDING PHYSICIAN: Dr. Mike Dior * (dictated by Sheri Regalado NP). PRIMARY DIAGNOSES: 1. Rib fracture secondary to mechanical fall. 2. Hematoma of the scalp secondary to mechanical fall. SECONDARY DIAGNOSES: 1. Alcohol abuse. 2. Diabetes mellitus type 2. 3. Gastroesophageal reflux disease. 4. Hypertension. 5. Chronic pain. 6. Hyperlipidemia. STUDIES WHILE IN THE HOSPITAL: 1. Brain CT on 06/30/18 reads as no acute intracranial abnormality. Chronic microvascular ischemic changes. Hematoma and laceration in the posterior parietal scalp. 2. Cervical spine CT on 06/30/18 reads as no acute abnormality. 3. Chest, abdomen and pelvis CT on 06/30/18 reads as acute bilateral rib fractures. Acute fracture of the left anterior fifth through eighth ribs and acute fracture of the right anterior second rib. No acute abdominal or pelvic abnormalities. Non- acute findings described in the body of the report. 4. EKG on 06/30/18 shows normal sinus rhythm with a rate of 75. QTC 474. No ischemic changes. 5. Right shoulder x-ray on 06/30/18 reads as no evidence of fracture. HISTORY OF PRESENT ILLNESS AND HOSPITAL COURSE: Ms. Laboy is a 62-year-old female with past medical history of alcohol abuse, chronic pain, diabetes, and hypertension, who presented to the emergency room on 06/30/18 after a mechanical fall. Please see the history and physical by Dr. Stewart for a complete summary of the events leading up to this hospitalization. In short, the patient reported falling down her basement stairs. She denied any loss of consciousness. She reported landing on her right shoulder and hit her head. She noticed a hematoma forming on the back of her head and went into her kitchen where she warmed up a kitchen knife with hot water to open the hematoma to drain it. She reported that she felt as though she had to drain the hematoma due to intense pressure in her scalp. She did call EMS and was brought on to the emergency room. In the ED, she was noted to be hypotensive with systolic pressures down into the 60s. This resolved with IV fluids. She complained of right shoulder pain and reported that she had fallen on a concrete slab on the back of her shoulder. She had imaging as noted above which was remarkable for rib fractures, though no fracture of the shoulder. She was admitted by the hospitalist service. The patient did have an alcohol level of 199 on admission. She was placed on [facility] protocol, though only required one dose of Ativan during her stay. She also reported a fall approximately 2 weeks ago, at which time she had rib pain. She was placed on q.4 neuro checks, though she had no neurological deficits. She received a TDAP booster and one dose of prophylactic cefazolin. As of today , the patient reports feeling better. She continues to have right shoulder pain with movement, particularly when she moves her right arm forward in front of her body. She denies any significant rib pain. Her hemoglobin had dropped slightly on admission, it was 11.3 and as of today she was 10.4, though I suspect this is dilutional due to the IV fluids she received for her hypotension. She has no active bleeding from the hematoma site. Her pain has been well managed with ibuprofen and acetaminophen. She was seen by Social Work for her history of alcohol abuse. I spoke at length with the patient and her friend, and the patient reports that she feels comfortable going back home. 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 She has full active and passive range of motion of the right arm and shoulder. Mr. Laboy is stable for discharge today. Vital signs are as follows: Temperature 98.8, heart rate 85, respiratory rate 22, oxygen saturation 98% on room air, blood pressure 166/78. DISCHARGE MEDICATIONS: New medication: 1. Lidocaine patch 5% 1 patch transdermal daily. CONTINUED MEDICATIONS: 1. Flexeril 5 mg p.o. t.i.d. 2. Hydroxyzine 25 mg p.o. daily. 3. Lisinopril 10 mg p.o. daily. 4. Omeprazole 20 mg p.o. daily. 5. MiraLAX 17 g p.o. daily p.r.n. constipation. 6. Pravastatin 20 mg p.o. daily. 7. Valacyclovir 500 mg p.o. daily. 8. Acetaminophen 650 mg p.o. q.6 hours p.r.n. fever, pain. 9. Byetta 5 mcg subcu at 1630. 10. Byetta 5 mcg subcu daily at 7:30. 11. Soma 350 mg p.o. at bedtime. 12. Soma 350 mg p.o. t.i.d. 13. Vitamin B12 of 1000 mcg IM monthly. 14. Ergocalciferol 50,000 units p.o. weekly 15. Ferrous sulfate 325 mg p.o. daily. 16. Folic acid 1 mg p.o. daily. 17. Multivitamin 1 tab p.o. daily. 18. Naproxen 220 mg p.o. daily. 19. Ondansetron 4 mg p.o. q.8 hours p.r.n. nausea and vomiting. 20. Piroxicam 10 mg p.o. t.i.d. with meals. 21. Thiamine 100 mg p.o. daily. DISCHARGE PLAN: Ms. Laboy will be discharged home. Activity will be as tolerated. Diet will be diabetic, consistent carb. Medications are noted above. I have prescribed the patient a month's supply of lidocaine patches for her right shoulder pain. She reports that she typically takes Aleve for arthritic pain and I advised her that she can continue to take this for her right shoulder pain. I did advise her that she should not take Tylenol while drinking alcohol. I also spoke with her about use of controlled substances and the likely contribution to her falls. She reports that she typically takes Soma at bedtime, though does not use it during the day. The patient does have a PCP out of area, although is agreeable to seeing the [facility] for followup in 4 to 7 days. At that time, I would recommend rechecking a CBC to ensure her H and H is stable. The patient has been advised to return to the hospital or nearest emergency room for any worsening symptoms, shortness of breath, lightheadedness, dizziness, chest discomfort, high fevers, chills, night sweats, loss of consciousness, or any other worrisome signs or symptoms. This is a summarized report of a complex medical history and hospital stay. For further details, please see the entire medical record. TIME SPENT: Approximately 40 minutes were spent on this discharge. SHERI JEF, BUSINESS ASSOCIATE [id number]/[facility] #: [id number] TERESA
== END 2018-07-01 18:10 | disposition home or self-care (01) ==
LOC: ED 18:34 → MED 22:30
PROVIDERS: ADMIT Pediatrics; ATTEND Internal Medicine
DX: F10.10 Alcohol abuse, uncomplicated (principal); Z91.81 History of falling; S01.01XA Laceration without foreign body of scalp, initial encounter; K21.9 Gastro-esophageal reflux disease without esophagitis; I10 Essential (primary) hypertension; G89.29 Other chronic pain; K59.00 Constipation, unspecified; E11.9 Type 2 diabetes mellitus without complications; E78.5 Hyperlipidemia, unspecified; Z88.2 Allergy status to sulfonamides; Z87.891 Personal history of nicotine dependence; W19.XXXA Unspecified fall, initial encounter; Y92.9 Unspecified place or not applicable
CPT/HCPCS: 36415; 70450; 71260; 72125; 74177; 80048; 80053; 80307; 80320; 81003; 82607; 83605; 84443; 85014; 85018; 85025; 86850; 86900; 86901; 90471; 90715; 93005; 96365; 96372; 99285; A9270-GY; G0378; G0480; J0690; J3411; Q9967

== ENCOUNTER 2019-01-14 13:44 | Emergency (ER) | payer MEDICAID ==
--- OUTSIDE RECORDS SUMMARY | 2019-01-14 15:22 | XMS REPORT | Continuity of Care Document ---
:1955 Author Organization [facility] Address [address] [place] [address] Care Team Providers Name Role Phone Tanisha [...] For Visit Copied on Encounter [facility] [address] [facility], [facility] [address] [email or web address] [address], . [place], tel:[phone] Shanika, [address] [place], [phone], Family History Family Member Diagnosis Age At Onset Mother Stroke Mother Hypertension Brother Osteoarthritis Father Depression Family history of Hypertension Father Hypertension Brother Hypertension Father OCD Family history of Diabetes mellitus Mother Hyperlipidemia Immunizations Vaccine Date Status Comments No information Payers Payer name Insurance type Covered democrat ID Authorization(s) Medicaid [id number] Social History Type Description Quantity Date Captured [...] Nella Laboy BOOKED Appointment Nella Laboy BOOKED Appointment Nella Laboy [...] Date No information Medical Equipment Description Device [place] Device Identifier Effective Dates (start - stop ) Status No information Mental Status Date Cognitive Assessment No information Health Concerns Observation Date No information Concern Status Date No information
--- OUTSIDE RECORDS SUMMARY | 2019-01-14 15:22 | XMS REPORT | Continuity of Care Document ---
:1955 Author Organization [facility] Address [address] [place] [address] Care Team Providers Name Role Phone Tanisha Conroy MD Unavailable Unavailable Christine Licona Unavailable Unavailable Allergies, Adverse Reactions, Alerts Substance Reaction Status No information Medications Medication Instructions Dosage Effective Dates Status Comments (start - stop) Ozempic 0.25 mg or inject (0.25MG) by 0.25 MG - Active 0.5 mg (2 mg/1.5 mL) subcutaneous route subcutaneous pen every week for 4 weeks injector then inject 0.5 mg subcutaneously once weekly using rotating injectionsites Problems Condition Effective Dates (start - stop) Clinical Status Comments No information Procedures Procedure Date OFFICE/OUTPATIENT VISIT, EST Results Test Name Date and Time Measure Units Reference Range Abnormal Flag Status Comments Panel Description: LIPID PANEL, STANDARD Final CHOLESTEROL, TOTAL 291 mg/dL <200 H Final 16:11:00 HDL CHOLESTEROL 101 mg/dL >50 N Final 16:11:00 TRIGLYCERIDES 91 mg/dL <150 N Final 16:11:00 LDL-CHOLESTEROL 169 mg/dL (calc) H Final <content 16:11:00 ID='ResultComment_ [id number]' xmlns='[email or web address] [email or web address]'>Reference range: <100 Desirable range <100 mg/dL for primary prevention; <70 mg/dL for patients with CHD or diabetic patients with > or = 2 CHD risk factors. LDL-C is now calculated using the Amanda calculation, which is a validated novel method providing better accuracy than the Friedewald equation in the estimation of LDL-C. Mj FORD et al. ANJALI. 2013;310(19): 5992-6830 (http://education. [facility] CenterDiagnostics.c om/faq/GQE929)<br/ >
</content> CHOL/HDLC RATIO 2.9 (calc) <5.0 N Final 16:11:00 NON HDL CHOLESTEROL 190 mg/dL (calc) <130 H Final For patients with 16:11:00 diabetes plus 1 major ASCVD risk factor, treating to a non-HDL-C goal of <100 mg/dL (LDL-C of <70 mg/dL) is considered a therapeutic option.

Panel Description: MICROALBUMIN, RANDOM URINE (W/CREATININE) Final CREATININE, 128 mg/dL 20-275 N Final RANDOM URINE 16:11:00 MICROALBUMIN 1.3 mg/dL See Note: N Final Reference 16:11:00 Range:Reference RangeNot established
<br/ > MICROALBUMIN/CREA 10 mcg/mg <30 N Final <content TININE RATIO, 16:11:00 creat ID='[email or web address]_ RANDOM URINE 2' xmlns='[email or web address]:[email or web address]'> The ADA defines abnormalities in albuminexcretion as follows: Category Result (mcg/mg creatinine) Normal <30Microalbuminuria 30-299 Clinical albuminuria > OR = 300 The ADA recommends that at least two of threespecimens collected within a 3-6 month period beabnormal before considering a patient to bewithin a diagnostic category.

< /content> Panel Description: COMPREHENSIVE METABOLIC PANEL Final GLUCOSE 65 mg/dL 65-99 N Final Fasting 16:11:00 reference interval

UREA NITROGEN 21 mg/dL 7-25 N Final (BUN) 16:11:00 CREATININE 1.42 mg/dL 0.50-0.99 H Final For patients >49 16:11:00 years of age, the reference limitfor Creatinine is approximately 13% higher for peopleidentified as -Marshallese.

eGFR NON-AFR. 39 mL/min/1.7 > OR = 60 L Final SAO TOMEAN 16:11:00 3m2 eGFR 46 mL/min/1.7 > OR = 60 L Final SAO TOMEAN 16:11:00 3m2 BUN/CREATININE 15 (calc) 6-22 N Final RATIO 16:11:00 SODIUM 134 mmol/L 135-146 L Final 16:11:00 POTASSIUM 3.7 mmol/L 3.5-5.3 N Final 16:11:00 CHLORIDE 93 mmol/L 98-110 L Final 16:11:00 CARBON DIOXIDE 28 mmol/L 20-32 N Final 16:11:00 CALCIUM 10.0 mg/dL 8.6-10.4 N Final 16:11:00 PROTEIN, TOTAL 7.3 g/dL 6.1-8.1 N Final 16:11:00 ALBUMIN 4.7 g/dL 3.6-5.1 N Final 16:11:00 GLOBULIN 2.6 g/dL 1.9-3.7 N Final 16:11:00 (calc) ALBUMIN/GLOBULIN 1.8 (calc) 1.0-2.5 N Final RATIO 16:11:00 BILIRUBIN, TOTAL 1.2 mg/dL 0.2-1.2 N Final 16:11:00 ALKALINE 116 U/L 33-130 N Final PHOSPHATASE 16:11:00 AST 56 U/L 10-35 H Final 16:11:00 ALT 64 U/L 6-29 H Final 16:11:00 Panel Description: CBC (INCLUDES DIFF/PLT) Final WHITE BLOOD CELL COUNT 16:11:00 5.6 Thousand/uL 3.8-10.8 N Final RED BLOOD CELL COUNT 16:11:00 4.54 Million/uL 3.80-5.10 N Final HEMOGLOBIN 16:11:00 11.6 g/dL 11.7-15.5 L Final HEMATOCRIT 16:11:00 36.2 % 35.0-45.0 N Final MCV 16:11:00 79.7 fL 80.0-100.0 L Final MCH 16:11:00 25.6 pg 27.0-33.0 L Final MCHC 16:11:00 32.0 g/dL 32.0-36.0 N Final RDW 16:11:00 19.9 % 11.0-15.0 H Final PLATELET COUNT 16:11:00 349 Thousand/uL 140-400 N Final MPV 16:11:00 10.0 fL 7.5-12.5 N Final ABSOLUTE NEUTROPHILS 16:11:00 3298 cells/uL 4354-7968 N Final ABSOLUTE LYMPHOCYTES 16:11:00 1417 cells/uL 850-3900 N Final ABSOLUTE MONOCYTES 16:11:00 784 cells/uL 200-950 N Final ABSOLUTE EOSINOPHILS 16:11:00 73 cells/uL 15-500 N Final ABSOLUTE BASOPHILS 16:11:00 28 cells/uL 0-200 N Final NEUTROPHILS 16:11:00 58.9 % 38-80 N Final LYMPHOCYTES 16:11:00 25.3 % 15-49 N Final MONOCYTES 16:11:00 14.0 % 0-13 H Final EOSINOPHILS 16:11:00 1.3 % 0-8 N Final BASOPHILS 16:11:00 0.5 % 0-2 N Final Panel Description: HEPATITIS C AB W/REFL TO HCV RNA, QN, PCR Final HEPATITIS C NON-REACTIVE NON-REACTIVE N Final ANTIBODY 16:11:00 SIGNAL TO 0.02 <1.00 N Final HCV antibody was CUT-OFF 16:11:00 non-reactive. There is no laboratory evidence of HCV infection. In most cases, no further action is required. However,if recent HCV exposure is suspected, a test for HCV RNA(test code 93949) is suggested. For additional information please refer tohttp://educatio n.questdiagnostic s.com/faq/WOQ57e6 (This link is being provided for informational/edu cational purposes only.)

Panel Description: VITAMIN B12/FOLATE, SERUM PANEL Final VITAMIN B12 16:11:00 >2000 pg/mL 200-1100 H Final FOLATE, SERUM 16:11:00 10.5 ng/mL N Final <content ID='ResultComment_[email or web address] ' xmlns='urn:hl7-org:[email or web address] '> Reference Range Low: <3.4 Borderline: 3.4-5.4 Normal: >5.4

</content> Panel Description: TSH W/REFLEX TO FT4 Final TSH W/REFLEX TO FT4 16:11:00 2.19 mIU/L 0.40-4.50 N Final Panel Description: A1C GLYCATED HEMOGLOBIN TEST Final POC A1C 15:01:46 9.5 Final Advance Directives Directive Yes / No Effective Date File Name No information Encounters Encounter Practice Location Reason(s) Diagnoses Date Provider Providers Description For Visit Copied on Encounter OFFICE/OUTPA [place] Chronic Type 2 diabetes [facility] [employer] TIENT VISIT, [facility] Conditions mellitus 2-201 Tanisha. Provider: [facility] (chief without [address] [facility], complaint) complicationsEs [facility] [place], [address] [place], [address] (primary) [place], [place], [facility] [facility] hypertensionMix [address], [place]. Monica Anderson, ed tel:[phone] [place], [place], hyperlipidemiaG 8700 [phone]. [place], ariane-esophagea tel:[phone] l reflux [id number] , [place] disease without esophagitisPoly osteoarthritis, unspecifiedDefi ciency of other specified B group vitaminsEncount er for screening for other viral diseasesSevere episode of recurrent major depressive disorder, without psychotic featuresAlcohol dependence, uncomplicated Family History Family Member Diagnosis Age At Onset Mother Stroke Mother Hypertension Brother Osteoarthritis Father Depression Family history of Hypertension Father Hypertension Brother Hypertension Father OCD Family history of Diabetes mellitus Mother Hyperlipidemia Immunizations Vaccine Date Status Comments No information Payers Payer name Insurance type Covered constitution party ID Authorization(s) Medicaid [id number] Social History Type Description Quantity Date Captured Comments Alcohol Use Details 1 drink occasionally Caffeine Use No Details Tobacco Use Status Occasional cigarette smoker Smoking Status Former smoker Smoking Tobacco Use Cigarette: Years Used 1995 Cigarette: 0.25 Packs per day , Pack Year: 499 Details Sex Female Vital Signs Date / Height Weight BMI Pulse Blood Temperature Respiratory Body Head BMI Pulse Inhaled Time: Rate Pressure Rate Surface Circumference percentile Ox Ox Area 59.00 181.00 36.5 76 138/90 97.80 F 18 /min 1.85 98 in lbs 6 /min mm[Hg] meter(2) 3:02 kg/m PM eter (2) Chief Complaint And Reason For Visit Most recent encounter only, dated '12/10/2018 14:40'. Chronic Conditions (chief complaint). Description: *See Chronic Conditions HPI Reason For Referral Reason For Referral No information Plan Of Treatment Date Type Action Status Appointment Nella Laboy BOOKED Appointment Nella Laboy BOOKED Appointment Nella Laboy BOOKED History Of Present Illness Encounter Date Complaint History Of Present Illness Chronic Conditions *See Chronic Conditions HPI Chronic Conditions (comments) Pt. is here today with above complaint. She relates that she is quite depressed as her mother has been in the hospital and currently in rehab for the past 3 months. She is still grieving her father's about 2-3 years ago. 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 She was incarcerated for a couple of weeks in 03/18 secondary to alcohol intoxication and attempt to drive while intoxicated. She was subsequently sent for inpatient alcohol rehab for 1 month. She still relates to having significant anhedonia, feelings of helplessness, hopelessness, guilt and sense of unworthiness. She still drinks about 1/4 to 1/2 quart of vodka every day. She knows that she has to stop. She is only taking her Humulin R and Lisinopril and has stopped her other meds. She is starting to eat a little better over the last 2 weeks. She is accompanied by a very good friend who relates that she is quite concerned about her. Functional Status Date Functional Assessment No information Medications Administered Medication Instructions Dosage Effective Dates (start - stop) Status Comments No information Instructions Date Instruction Additional Information 1. Will check hepatitis C antibody Related to Encounter for screening given CDC and [place] Preventative Task for other viral diseases Forces recommendation for one time screening in patients born between 1945 and 1965.2. Patient and friend verbalized understanding regarding the above treatment plan. Call Health Center or go to ER if any acute changes or concerns. 1. ROM exercises and monitor. Related to Polyosteoarthritis, unspecified 1. Monitor lifestyle modification Related to Gastro-esophageal reflux tips. disease without esophagitis 1. Check vitamin B12 level today. 2. Related to Deficiency of other She is not taking any supplements at specified B group vitamins this time. 1. She is currently on no meds. 2. Related to Mixed hyperlipidemia Check lipid profile today. 1. Monitor salt intake. 2. Continue Related to Essential (primary ) with Lisinopril 10 mg po qday. hypertension 1. Monitor sweet and carb intake. 2. Related to Type 2 diabetes mellitus Continue with Humulin R 5-6 units sc without complications qday. 3. Start Ozempic 0.25 mg sc qweekly for 4 weeks then 0.5 mg sc qweekly. 4. Monitor chemstrips. 5. Check urine for microalbumin/creatinine ratio. 6. Check CBC, comp. panel, lipids, TSH, and vitamin B12 today as she has not eaten since 7 am. 1. Refer for BH intake with Edyta Related to Severe episode of today. She will need intensive recurrent major depressive disorder, outpatient counseling closer to her without psychotic features home. 2. Start Zoloft 50 mg po qday. Side effects of med discussed. 3. Monitor closely. Assessments Type Assessment Date assessment Type 2 diabetes mellitus without complications assessment Essential (primary) hypertension assessment Mixed hyperlipidemia assessment Gastro-esophageal reflux disease without esophagitis assessment Polyosteoarthritis, unspecified assessment Deficiency of other specified B group vitamins assessment Encounter for screening for other viral diseases assessment Severe episode of recurrent major depressive disorder, without Nov psychotic features assessment Alcohol dependence, uncomplicated Goals Health Concern Goal Type Priority Status Date No information Medical Equipment Description Device [place] Device Identifier Effective Dates (start - stop ) Status No information Mental Status Date Cognitive Assessment Orientation - Oriented to time, place, person, situation. Health Concerns Observation Date No information Concern Status Date No information
--- OUTSIDE RECORDS SUMMARY | 2019-01-14 15:22 | XMS REPORT | Continuity of Care Document ---
:[address] [facility] Address [address] [place] [address] Care Team Providers Name Role Phone Tanisha [...] on Encounter Shanika Voss [facility] TanishaFormerly [facility] [address] Services, [facility] [address] [facility], [address], . Monica, tel:[phone] Shanika, [address] [place], [phone], Family History Family Member Diagnosis Age At Onset Mother Stroke Mother Hypertension Brother Osteoarthritis Father Depression Family history of Hypertension Father Hypertension Brother Hypertension Father OCD Family history of Diabetes mellitus Mother Hyperlipidemia Immunizations Vaccine Date Status Comments No information Payers Payer name Insurance type Covered alliance party ID Authorization(s) Medicaid [id number] Social History Type Description Quantity Date Captured [...] Date No information Medical Equipment Description Device [place] Device Identifier Effective Dates (start - stop ) Status No information Mental Status Date Cognitive Assessment No information Health Concerns Observation Date No information Concern Status Date No information
--- OUTSIDE RECORDS SUMMARY | 2019-01-14 15:22 | XMS REPORT | Continuity of Care Document ---
:1955 Author Organization [facility] Address [address] [place] [address] Care Team Providers Name Role Phone Edyta Bennett Unavailable Unavailable Allergies, Adverse Reactions, Alerts Substance [...] For Visit Copied on Encounter Shanika Voss Jori Lan. [facility] -[address] [place] [address], [facility], [address] [facility], [facility], . Catcher tel:[phone] Monica, [address] [place], [place], [phone], Family History Family Member Diagnosis Age At Onset Mother Stroke Mother Hypertension Brother Osteoarthritis Father Depression Family history of Hypertension Father Hypertension Brother Hypertension Father OCD Family history of Diabetes mellitus Mother Hyperlipidemia Immunizations Vaccine Date Status Comments No information Payers Payer name Insurance type Covered democrat ID Authorization(s) Medicaid MC [id number] Social History Type Description Quantity Date Captured [...] Date No information Medical Equipment Description Device [place] Device Identifier Effective Dates (start - stop ) Status No information Mental Status Date Cognitive Assessment No information Health Concerns Observation Date No information Concern Status Date No information
--- OUTSIDE RECORDS SUMMARY | 2019-01-14 15:22 | XMS REPORT | Continuity of Care Document ---
:1955 Author Organization [facility] Address [address] [place] [address] Care Team Providers Name Role Phone Tanisha Conroy MD Unavailable Unavailable Allergies, Adverse Reactions, Alerts Substance Reaction Status No information Medications Medication Instructions Dosage Effective Dates Status Comments (start - stop) hydrocortisone 2.5 % apply by topical 0.00 - Active topical ointment route 2 times every day a thin layer to the affected area(s) Problems Condition Effective Dates (start - stop) [...] Copied on Encounter Shanika Voss [facility] -2018 Tanisha. [facility] [address] Services, [facility] [address] [facility] [address], . Monica, tel:[phone] Shanika, [address] [place], [phone], Family History Family Member Diagnosis Age At Onset Mother Stroke Mother Hypertension Brother Osteoarthritis Father Depression Family history of Hypertension Father Hypertension Brother Hypertension Father OCD Family history of Diabetes mellitus Mother Hyperlipidemia Immunizations Vaccine Date Status Comments No information Payers Payer name Insurance type Covered alliance party ID Authorization(s) Medicaid MC [id number] Social History Type Description Quantity Date Captured [...] Date No information Medical Equipment Description Device [place] Device Identifier Effective Dates (start - stop ) Status No information Mental Status Date Cognitive Assessment No information Health Concerns Observation Date No information Concern Status Date No information
--- OUTSIDE RECORDS SUMMARY | 2019-01-14 15:22 | XMS REPORT | Continuity of Care Document ---
:[address] [facility] Address [address] [place] [address] Care Team Providers Name Role Phone Tanisha Conroy MD Unavailable Unavailable Allergies, Adverse Reactions, Alerts Substance Reaction Status No information Medications Medication Instructions Dosage Effective Dates Status Comments (start - stop) Zoloft 50 mg take 1 tablet by 50 MG - No Longer tablet oral route every Active day Problems Condition Effective Dates (start - stop) [...] Encounter Shanika Voss [facility] Tanisha. [facility], [facility] [address] [facility], [address], . Monica, tel:[phone] Shanika, [address] [place], [phone], Family History Family Member Diagnosis Age At Onset Mother Stroke Mother Hypertension Brother Osteoarthritis Father Depression Family history of Hypertension Father Hypertension Brother Hypertension Father OCD Family history of Diabetes mellitus Mother Hyperlipidemia Immunizations Vaccine Date Status Comments No information Payers Payer name Insurance type Covered libertarian ID Authorization(s) Medicaid [id number] Social History Type Description Quantity Date Captured [...] Date No information Medical Equipment Description Device [place] Device Identifier Effective Dates (start - stop ) Status No information Mental Status Date Cognitive Assessment No information Health Concerns Observation Date No information Concern Status Date No information
--- OUTSIDE RECORDS SUMMARY | 2019-01-14 15:22 | XMS REPORT | Continuity of Care Document ---
:1955 Author Organization [facility] Address [address] [place] [address] Care Team Providers Name Role Phone Tanisha Conroy MD Unavailable Unavailable Allergies, Adverse Reactions, Alerts Substance Reaction Status SERTRALINE HCL Itching (moderate) Active Medications Medication Instructions Dosage Effective Dates Status Comments (start - stop) Lexapro 10 mg tablet take 1 tablet by oral 10 MG - Active route every day Problems Condition Effective Dates (start - [...] Copied on Encounter Shanika Voss [facility] -2018 Tanisha. [facility] [address] Services, [facility] [address] [facility] [address], . [place], tel:[phone] Shanika, [address] [place], [phone], Family History Family Member Diagnosis Age At Onset Mother Stroke Mother Hypertension Brother Osteoarthritis Father Depression Family history of Hypertension Father Hypertension Brother Hypertension Father OCD Family history of Diabetes mellitus Mother Hyperlipidemia Immunizations Vaccine Date Status Comments No information Payers Payer name Insurance type Covered constitution party ID Authorization(s) Medicaid [id number] Social History Type Description Quantity Date Captured [...] Date No information Medical Equipment Description Device [place] Device Identifier Effective Dates (start - stop ) Status No information Mental Status Date Cognitive Assessment No information Health Concerns Observation Date No information Concern Status Date No information
--- OUTSIDE RECORDS SUMMARY | 2019-01-14 15:22 | XMS REPORT | Continuity of Care Document ---
:1955 Author Organization [facility] Address [address] [place] [address] Care Team Providers Name Role Phone Tanisha [...] Visit Copied on Encounter Shanika [facility]oss [facility] [address] Services, [facility] [address] [facility] [place], [address], . Monica, tel:[phone] Shanika, [address] [place], [phone], Family History Family Member Diagnosis Age At Onset Mother Stroke Mother Hypertension Brother Osteoarthritis Father Depression Family history of Hypertension Father Hypertension Brother Hypertension Father OCD Family history of Diabetes mellitus Mother Hyperlipidemia Immunizations Vaccine Date Status Comments No information Payers Payer name Insurance type Covered constitution party ID Authorization(s) Medicaid [id number] Social History Type Description Quantity Date Captured [...] Date No information Medical Equipment Description Device [employer] Device Identifier Effective Dates (start - stop ) Status No information Mental Status Date Cognitive Assessment No information Health Concerns Observation Date No information Concern Status Date No information
--- OUTSIDE RECORDS SUMMARY | 2019-01-14 15:22 | XMS REPORT | Continuity of Care Document ---
:1955 Author Organization [facility] Address [address] [place] [address] Care Team Providers Name Role Phone Tanisha [...] Copied on Encounter [facility]oss [facility] [address] Services, [facility] [address] [email or web address]], [address], . Monica, tel:[phone] Shanika, [address] [place], [phone], Family History Family Member Diagnosis Age At Onset Mother Stroke Mother Hypertension Brother Osteoarthritis Father Depression Family history of Hypertension Father Hypertension Brother Hypertension Father OCD Family history of Diabetes mellitus Mother Hyperlipidemia Immunizations Vaccine Date Status Comments No information Payers Payer name Insurance type Covered alliance party ID Authorization(s) Medicaid [id number] Social History Type Description Quantity Date Captured [...] Date No information Medical Equipment Description Device [place] Device Identifier Effective Dates (start - stop ) Status No information Mental Status Date Cognitive Assessment No information Health Concerns Observation Date No information Concern Status Date No information
--- NOTE | 2019-01-14 15:34 | ED ---
Psychiatric Complaint - HPI Summary HPI Summary: Pt is a 63 y/o F presenting to the ED with a chief psychiatric complaint. Per the pts best friend, the pt asked to come today because she doesnt feel like herself and does not feel like she is in her own body. She reports that the pt has been very depressed since being released from correction approximately 4 months ago, around the same time she lost her father, and has lost her relationship with her mother. She also states that the pt has been drinking alcohol, and unable to leave her own bed. The pts friend describes her as emotionally distraught, crying hysterically all the time, and unable to keep her thoughts straight. Additionally, the pt has a rash diffusely spread across her body that has been waxing and waning in severity/pruritus with different medications. She was also recently dxed with HLD, but they will not give her medication, as her liver function labs were of abnormal levels. - History Of Current Complaint Chief Complaint: EDMentalHealth Time Seen by Provider: 01/14/19 15:14 Accompanied By: friends Hx Obtained From: Patient Onset/Duration: Sudden Onset, Lasting Weeks, Still Present Timing: Weeks Severity Initially: Moderate Severity Currently: Severe Character: Depressed Aggravating Factor(s): Recent Stress, Alcohol Use Alleviating Factor(s): Nothing Associated Signs And Symptoms: Positive: Social Withdrawal - Allergies/Home Medications Allergies/Adverse Reactions: Allergies Allergy/AdvReac Type Severity Reaction Status Date / Time Adhesive Tape Allergy Itching Verified 01/14/19 14:01 aspirin Allergy Hives Verified 01/14/19 14:01 hydrocodone Allergy Hives Verified 01/14/19 14:01 Home Medications: Home Medications Escitalopram * [Lexapro 10 mg (NF)] 10 mg PO DAILY 01/14/19 [History Confirmed 01/14/19] Hydrocortisone 2.5% CREAM(NF) 1 applic TOPICAL QID PRN 01/14/19 [History Confirmed 01/14/19] PMH/Surg Hx/FS Hx/Imm Hx Previously Healthy: Yes Endocrine/Hematology History: Reports: Hx Diabetes Cardiovascular History: Reports: Hx Hypercholesterolemia, Hx Hypertension Respiratory History: Denies: Hx Asthma GI History: Reports: Other GI Disorders - gastric bypass surgery Sensory History: Reports: Hx Contacts or Glasses Denies: Hx Hearing Aid Opthamlomology History: Reports: Hx Contacts or Glasses Psychiatric History: Reports: Hx [facility] - Started the process to receive services at [facility], Substance Abuse - Alcohol - Surgical History Surgery Procedure, Year, and Place: Eight hernia surgeries, gastric bypass Infectious Disease History: No Infectious Disease History: Denies: Traveled Outside the [place] in Last 30 Days - Family History Known Family History: Positive: Diabetes, Other - Brain Tumor - Father - Social History Alcohol Use: Weekly Alcohol Amount: 3-5 per week Substance Use Type: Reports: None Hx Tobacco Use: No Smoking Status (MU): Former Smoker Review of Systems Positive: Rash Positive: Depressed All Other Systems Reviewed And Are Negative: Yes Physical Exam - Summary Physical Exam Summary: Appearance: The patient is well-nourished in no acute distress and in no acute pain. Skin: The skin has a diffuse, dry, scaley rash that is excoriated in some places. HEENT: The head is normocephalic and atraumatic. The pupils are equal and reactive. The conjunctivae are clear and without drainage. Nares are patent and without drainage. Mouth reveals moist mucous membranes and the throat is without erythema and exudate. The external ears are intact. The ear canals are patent and without drainage. The tympanic membranes are intact. Neck: The neck is supple with full range of motion and non-tender. There are no carotid bruits. There is no neck vein distension. Respiratory: Chest is non-tender. Lungs are clear to auscultation and breath sounds are symmetrical and equal. Cardiovascular: Heart is regular rate and rhythm. There is no murmur or rub auscultated. There is no peripheral edema and pulses are symmetrical and equal. Abdomen: The abdomen is soft and non-tender. There are normal bowel sounds heard in all four quadrants and there is no organomegaly palpated. Musculoskeletal: There is no back tenderness noted. Extremities are non-tender with full range of motion. There is good capillary refill. There is no peripheral edema or calf tenderness elicited. Neurological: Patient is alert and oriented to person, place and time. The patient has symmetrical motor strength in all four extremities. Cranial nerves are grossly intact. Deep tendon reflexes are symmetrical and equal in all four extremities. Psychiatric: The patient is emotionally labile. Triage Information Reviewed: Yes Vital Signs On Initial Exam: Initial Vitals Temp Pulse Resp BP Pulse Ox 98.7 F 77 16 174/105 94 01/14/19 13:54 01/14/19 13:54 01/14/19 13:54 01/14/19 13:54 01/14/19 13:54 Vital Signs Reviewed: Yes Diagnostics - Vital Signs Vital Signs Temp Pulse Resp BP Pulse Ox 01/14/19 13:54 98.7 F 77 16 174/105 94 - Laboratory Result Diagrams: 01/14/19 16:02 01/14/19 16:02 Lab Statement: Any lab studies that have been ordered have been reviewed, and results considered in the medical decision making process. Course/Dx - Course Course Of Treatment: Ms. Laboy presented intoxicated and emotionally labile. 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 She has been taking care of her mother for a long time and is unable to do so now as the mother has been placed in a intermediate. The patient will be sober at 2200 and medically cleared to speak with the acoustic intelligence specialist. - Differential Dx/Clinical Impression Provider Diagnosis: Alcohol intoxication, Depression Discharge - Sign-Out/Discharge Documenting (check all that apply): Sign-Out Patient Signing out patient TO: Ibrahima Be Receiving patient FROM: Gurjit Cruz - Discharge Plan Condition: Stable Referrals: No Primary Care Phys,NOPCP [Primary Care Provider] - - Billing Disposition and Condition Condition: STABLE - Attestation Statements Document Initiated by Scribe: Yes Documenting Scribe: Casandra Reddy Provider For Whom Savannahibe is Documenting (Include Credential): Gurjit Cruz MD. Scribe Attestation: Casandra Galvan, scribed for Gurjit Cruz MD. on 01/14/19 at 2149. Scribe Documentation Reviewed: Yes Provider Attestation: The documentation as recorded by the savannahibeCasandra accurately reflects the service I personally performed and the decisions made by me, Gurjit Cruz MD. Status of Scribe Document: Viewed
[2019-01-14 16:10] LABS: ABS Basophils 0.1 10^3/ul (0-0.2); ABS Eosinophils 0.1 10^3/ul (0-0.6); ABS Lymphocytes 1.1 10^3/ul (1.0-4.8); ABS Monocytes 0.4 10^3/ul (0-0.8); ABS Neutrophils 1.3 10^3/ul (1.5-7.7); Eosinophil % 2.7 %; Hematocrit 36 % (35-47); Hemoglobin 11.7 g/dL (12.0-16.0); Lymphocyte % 37.8 %; Mean Corpuscular HGB Conc 32 g/dL (31-36); Mean Corpuscular Hemoglobin 26 pg (27-31); Mean Corpuscular Volume 80 fL (80-97); Nucleated Red Blood Cells % 0.1; Platelet Count 356 10^3/uL (150-450); Red Blood Count 4.54 10^6 /uL (3.70-4.87); Red Cell Distribution Width 20 % (10-15); White Blood Count 2.9 10^3/uL (3.5-10.8)
[2019-01-14 16:15] LABS: Urine Appearance Cloudy; Urine Bacteria 1+ (Absent); Urine Bilirubin Negative (Negative); Urine Blood Negative (Negative); Urine Color Yellow; Urine Glucose 2+(150 mg/dL) (Negative); Urine Ketones Negative (Negative); Urine Nitrite Negative (Negative); Urine Protein Negative (Negative); Urine Red Blood Cell Trace(0-2/hpf) (Absent); Urine Specific Gravity 1.009 (1.010-1.030); Urine Squamous Epithelial Cell Present (Absent); Urine Urobilinogen Negative (Negative); Urine White Blood Cell Trace(0-5/hpf) (Absent)
[2019-01-14 16:31] LABS: ALT 72 U/L (7-52); AST 71 U/L (13-39); Albumin 4.4 g/dL (3.2-5.2); Albumin/Globulin Ratio 1.6 (1-3); Alkaline Phosphatase 86 U/L (34-104); Anion Gap 11 mmol/L (2-11); BUN/Creatinine Ratio 10.8 (8-20); Blood Urea Nitrogen 7 mg/dL (6-24); CO2 Carbon Dioxide 27 mmol/L (22-32); Calcium 9.4 mg/dL (8.6-10.3); Chloride 102 mmol/L (101-111); EGFR African American 111.8 (>60); EGFR Non-African American 92.4 (>60); Globulin 2.7 g/dL (2-4); Glucose 198 mg/dL (70-100); Potassium 4.1 mmol/L (3.5-5.0); Sodium 140 mmol/L (135-145); Total Protein 7.1 g/dL (6.4-8.9)
[2019-01-14 16:31] LABS: Urine Benzodiazepine Screen None Detected (None Detect); Urine Opiates Screen None Detected (None Detect)
[2019-01-14 16:42] LABS: Acetaminophen < 15 mcg/mL; Alcohol 255 mg/dL (<10); Salicylate < 2.50 mg/dL (<30)
[2019-01-14 16:53] LABS: TSH (Thyroid Stimulating Horm) 1.74 mcIU/mL (0.34-5.60)
[2019-01-14 21:36] LABS: Hepatitis C Antibody Negative (Negative)
--- NOTE | 2019-01-14 23:03 | ED ---
Progress - Progress Note Progress Note: This pt is a sign out from Dr. Cruz to Dr. Be at shift change 2200 01/14/19 pending a MHE. Course/Dx - Course Course Of Treatment: This pt is a sign out from Dr. Cruz to Dr. Be at shift change 2200 01/14/19 pending a MHE. This pt is a sign out to Dr. Kwok from Dr. Be at shift change 0700 01/15/19 pending a transfer to an alcohol program. She will be diagnosed with alcohol abuse and alcohol intoxication per Dr. Coronado 0615. - Diagnoses Provider Diagnoses: Alcohol intoxication, Alcohol abuse - Provider Notifications Discussed Care Of Patient With: Fidencio Coronado Time Discussed With Above Provider: 06:15 Instructed by Provider To: Transfer Discharge - Sign-Out/Discharge Documenting (check all that apply): Sign-Out Patient Signing out patient TO: Dario Kwok Patient Received Moderate/Deep Sedation with Procedure: No - Discharge Plan Condition: Stable Patient Education Materials: Alcohol Use Disorder (ED) Referrals: No Primary Care Phys,NOPCP [Primary Care Provider] - - Billing Disposition and Condition Condition: STABLE - Attestation Statements Document Initiated by Scribe: Yes Documenting Scribe: Ad Holloway Provider For Whom Scribe is Documenting (Include Credential): Ibrahima Be MD Scribe Attestation: Ad Galvan, scribed for Ibrahima Be MD on 01/15/19 at 0632. Scribe Documentation Reviewed: Yes Provider Attestation: The documentation as recorded by the Ad hair accurately reflects the service I personally performed and the decisions made by Ibrahima woodward MD Status of Scribe Document: Viewed
[2019-01-15] MEDS ORDERED: Acetaminophen TAB* 325 MG PO ONE (01:15)
[2019-01-15] MEDS ORDERED: diPHENhydraMINE PO* 50 MG PO ONE (01:16)
--- NOTE | 2019-01-15 06:37 | PN ---
ED Psychiatric Progress Note Date of Service: 01/14/19 Subjective: This is a 63 year-old F who is pending admission to [facility] / transfer to another psychiatric facility / discharge to home / or being observed secondary to ETOH intoxication and depression. Pt. examined in room 16 at 0635. She is sleeping comfortably. Objective: Vitals: Most recent vital signs documented below. General NAD Laboratory: Current laboratory results documented below. Assessment: Depression, ETOH use. Plan: Pending MHE. Morning medication ordered. Vital Signs Temp Pulse Resp BP Pulse Ox 98.5 F 106 18 177/103 95 01/14/19 23:56 01/14/19 23:56 01/14/19 23:56 01/14/19 23:56 01/14/19 23:56 Lab Results - Entire Visit 01/14/19 01/14/19 01/14/19 16:02 16:02 16:02 WBC 2.9 L RBC 4.54 Hgb 11.7 L Hct 36 MCV 80 MCH 26 L MCHC 32 RDW 20 H Plt Count 356 MPV 7.0 L Neut % (Auto) 43.3 Lymph % (Auto) 37.8 Pickett % (Auto) 14.4 Eos % (Auto) 2.7 Baso % (Auto) 1.8 Absolute Neuts (auto) 1.3 L Absolute Lymphs (auto) 1.1 Absolute Monos (auto) 0.4 Absolute Eos (auto) 0.1 Absolute Basos (auto) 0.1 Absolute Nucleated RBC 0.0 Nucleated RBC % 0.1 Sodium 140 Potassium 4.1 Chloride 102 Carbon Dioxide 27 Anion Gap 11 BUN 7 Creatinine 0.65 Est GFR ( Amer) 111.8 Est GFR (Non-Af Amer) 92.4 BUN/Creatinine Ratio 10.8 Glucose 198 H Calcium 9.4 Total Bilirubin 0.60 AST 71 H ALT 72 H Alkaline Phosphatase 86 Total Protein 7.1 Albumin 4.4 Globulin 2.7 Albumin/Globulin Ratio 1.6 TSH 1.74 Urine Color Urine Appearance Urine pH Ur Specific Rupert Urine Protein Urine Ketones Urine Blood Urine Nitrate Urine Bilirubin Urine Urobilinogen Ur Leukocyte Esterase Urine WBC (Auto) Urine RBC (Auto) Ur Squamous Epith Cells Urine Bacteria Urine Glucose Salicylates < 2.50 Urine Opiates Screen Acetaminophen < 15 Ur Barbiturates Screen Ur Phencyclidine Scrn Ur Amphetamines Screen U Benzodiazepines Scrn Urine Cocaine Screen U Cannabinoids Screen Serum Alcohol 255 H Hepatitis C Antibody Negative Hepatitis C Ab Index 0.02 01/14/19 01/14/19 14:50 14:50 WBC RBC Hgb Hct MCV MCH MCHC RDW Plt Count MPV Neut % (Auto) Lymph % (Auto) Pickett % (Auto) Eos % (Auto) Baso % (Auto) Absolute Neuts (auto) Absolute Lymphs (auto) Absolute Monos (auto) Absolute Eos (auto) Absolute Basos (auto) Absolute Nucleated RBC Nucleated RBC % Sodium Potassium Chloride Carbon Dioxide Anion Gap BUN Creatinine Est GFR ( Amer) Est GFR (Non-Af Amer) BUN/Creatinine Ratio Glucose Calcium Total Bilirubin AST ALT Alkaline Phosphatase Total Protein Albumin Globulin Albumin/Globulin Ratio TSH Urine Color Yellow Urine Appearance Cloudy Urine pH 5.0 Ur Specific Rupert 1.009 L Urine Protein Negative Urine Ketones Negative Urine Blood Negative Urine Nitrate Negative Urine Bilirubin Negative Urine Urobilinogen Negative Ur Leukocyte Esterase Trace A Urine WBC (Auto) Trace(0-5/hpf) Urine RBC (Auto) Trace(0-2/hpf) Ur Squamous Epith Cells Present A Urine Bacteria 1+ A Urine Glucose 2+(150 mg/dl) A Salicylates Urine Opiates Screen None detected Acetaminophen Ur Barbiturates Screen None detected Ur Phencyclidine Scrn None detected Ur Amphetamines Screen None detected U Benzodiazepines Scrn None detected Urine Cocaine Screen None detected U Cannabinoids Screen None detected Serum Alcohol Hepatitis C Antibody Hepatitis C Ab Index
[2019-01-15] MEDS ORDERED: Lisinopril TAB* 10 MG PO ONE (06:38)
[2019-01-15] MEDS ORDERED: Escitalopram * 10 MG TAB PO ONE (06:38)
--- NOTE | 2019-01-15 07:30 | ED ---
Progress - Progress Note Progress Note: This pt is a sign out to Dr. Kwok from Dr. Be at shift change 0700 01/15/19 pending transfer of this patient to an alcohol program. 0759 - Patient is unwilling to participate in a drug/alcohol rehabilitation program at this time and wants another 24 hours prior to starting. She was notified that she was accepted into a day program at the [facility] in [place], [place] , but patient states that she does not wish to start this today. Patient was discharged to home. - Consult/PCP Time Called: 22:46 Course/Dx - Course Course Of Treatment: Patient is alert and oriented 3. The patient is sober. The patient will be discharged home and follow up with the detox program. - Diagnoses Provider Diagnoses: Alcohol intoxication, Alcohol abuse Discharge - Sign-Out/Discharge Documenting (check all that apply): Patient Departure - discharge , Receiving Sign-Out Receiving patient FROM: Ibrahima Be Patient Received Moderate/Deep Sedation with Procedure: No - Discharge Plan Condition: Stable Disposition: HOME Patient Education Materials: Alcohol Use Disorder (ED) Referrals: No Primary Care Phys,NOPCP [Primary Care Provider] - - Billing Disposition and Condition Condition: STABLE Disposition: Home - Attestation Statements Document Initiated by Scribe: Yes Documenting Scribe: LARY POALNCO Provider For Whom Paras is Documenting (Include Credential): FALLON KWOK MD Scribe Attestation: LARY Galvan, scribed for FALLON KWOK MD on 01/15/19 at 1824. Scribe Documentation Reviewed: Yes Provider Attestation: The documentation as recorded by the LARY hair accurately reflects the service I personally performed and the decisions made by nm, FALLON KWOK MD Status of Scribe Document: Viewed
[2019-01-15 08:56] VITALS: BP 196/82
--- NOTE | 2019-01-17 13:05 | PN ---
Progress Note - Progress Note Date of Service: 01/14/19 Note: Urine culture growing >100GBS. Attempted to call pt. today at 1300 with no answer. Rx for amoxicillin sent to pharmacy. Letter sent to return call.
== END 2019-01-15 08:55 | disposition home or self-care (01) ==
LOC: ED 13:44
DX: F10.129 Alcohol abuse with intoxication, unspecified (principal); F32.9 Major depressive disorder, single episode, unspecified; Z88.6 Allergy status to analgesic agent; Z88.5 Allergy status to narcotic agent; E11.9 Type 2 diabetes mellitus without complications; E78.00 Pure hypercholesterolemia, unspecified; I10 Essential (primary) hypertension; Z87.891 Personal history of nicotine dependence; Z79.899 Other long term (current) drug therapy
CPT/HCPCS: 36415; 80053; 80307; 80320; 80329; 81003; 81015; 84443; 85025; 86803; 87077; 87086; 99284; A9270-GY; G0480

== ENCOUNTER 2020-09-09 13:09 | Inpatient (IN) ==
[2020-09-09 14:25] LABS: Activated Partial Thrombo Time 21.7 seconds (26.0-38.0); INR 0.97 (0.82-1.09)
[2020-09-09 15:42] LABS: Hematocrit 32 % (35-47); Hemoglobin 9.7 g/dL (12.0-16.0); Mean Corpuscular HGB Conc 31 g/dL (31-36); Mean Corpuscular Hemoglobin 22 pg (27-31); Mean Corpuscular Volume 71 fL (80-97); Mean Platelet Volume 7.3 fL (7.4-10.4); Platelet Count 698 10^3/uL (150-450); Red Blood Count 4.46 10^6 /uL (3.70-4.87); Red Cell Distribution Width 28 % (10-15)
[2020-09-09] MEDS: Bacitracin OINTMENT TUBE TOPICAL SCH (15:46)
[2020-09-09 15:51] LABS: ALT 30 U/L (7-52); AST 29 U/L (13-39); Albumin 4.2 g/dL (3.2-5.2); Albumin/Globulin Ratio 1.4 (1-3); Alkaline Phosphatase 90 U/L (34-104); Anion Gap 9 mmol/L (2-11); BUN/Creatinine Ratio 30.2 (8-20); Blood Urea Nitrogen 16 mg/dL (6-24); C Reactive Protein 1.25 mg/L (<8.01); CO2 Carbon Dioxide 28 mmol/L (22-32); Calcium 9.5 mg/dL (8.6-10.3); Chloride 96 mmol/L (101-111); EGFR African American 140.5 (>60); EGFR Non-African American 116.1 (>60); Globulin 3.1 g/dL (2-4); Glucose 183 mg/dL (70-100); Influenza A Molecular Negative (Negative); Influenza B Molecular Negative (Negative); Potassium 3.9 mmol/L (3.5-5.0); Sodium 133 mmol/L (135-145); Total Protein 7.3 g/dL (6.4-8.9)
[2020-09-09 15:53] LABS: Troponin I 0.01 ng/mL (<0.03)
[2020-09-09 16:11] LABS: ABS Neutrophils 4.8 10^3/ul (1.5-7.7)
[2020-09-09 16:18] LABS: LDH 166 U/L (140-271)
[2020-09-09 16:38] LABS: Ferritin 8.9 ng/mL (11-307)
[2020-09-09 16:55] LABS: HIV 4th Generation Nonreactive (Nonreactive)
[2020-09-09 17:57] LABS: Hepatitis C Antibody Negative (Negative)
[2020-09-09 18:37] LABS: Urine Appearance Cloudy; Urine Bilirubin Negative (Negative); Urine Blood Negative (Negative); Urine Color Yellow; Urine Glucose 1+(50 mg/dL) (Negative); Urine Ketones 1+ (Negative); Urine Nitrite Negative (Negative); Urine Protein 2+(100 mg/dL) (Negative); Urine Specific Gravity 1.021 (1.002-1.030); Urine Urobilinogen Negative (Negative)
[2020-09-09] MEDS ORDERED: Dextrose 50% Syringe 50 ml 25 GM/50 ML SYRINGE IV PUSH PRN (18:49)
[2020-09-09 19:09] LABS: Urine Bacteria Absent (Absent); Urine Red Blood Cell Trace(0-2/hpf) (Absent); Urine Squamous Epithelial Cell Present (Absent); Urine White Blood Cell Trace(0-5/hpf) (Absent)
[2020-09-09 19:43] LABS: % Iron Saturation 10 % (15-55); Iron 56 ug/dL (50-212); Total Iron Binding Capacity 545 mcg/dL (250-450); Transferrin 389 mg/dL (203-362); Unsaturated Iron Binding < 530 ug/dL
[2020-09-09 20:09] LABS: Vitamin B12 413 pg/mL (180-914)
[2020-09-09] MEDS: Enoxaparin 40 MG/0.4 ML SYR SUBCUT SCH (21:42)
[2020-09-10 06:13] LABS: ABS Basophils 0.1 10^3/ul (0-0.2); ABS Lymphocytes 2.1 10^3/ul (1.0-4.8); ABS Monocytes 0.9 10^3/ul (0-0.8); ABS Neutrophils 3.7 10^3/ul (1.5-7.7); Eosinophil % 0.7 %; Hematocrit 29 % (35-47); Hemoglobin 8.8 g/dL (12.0-16.0); Lymphocyte % 30.3 %; Mean Corpuscular HGB Conc 31 g/dL (31-36); Mean Corpuscular Hemoglobin 22 pg (27-31); Mean Corpuscular Volume 71 fL (80-97); Mean Platelet Volume 7.5 fL (7.4-10.4); Platelet Count 678 10^3/uL (150-450); Red Blood Count 4.04 10^6 /uL (3.70-4.87); Red Cell Distribution Width 28 % (10-15); White Blood Count 6.8 10^3/uL (3.5-10.8)
[2020-09-10] MEDS: ceFAZolin 2 GM PREMIX 2 GM/50 ML BAG IVPB SCH ×3 (06:25→21:43)
[2020-09-10] MEDS ORDERED: hydrALAZINE 20 mg/ml 1 ML Vial IV IV SLOW PU PRN (07:49)
[2020-09-10] MEDS: Bacitracin OINTMENT TUBE TOPICAL SCH (12:07)
[2020-09-10] MEDS ORDERED: diPHENhydraMINE 25 mg TAB PO PRN (20:25)
[2020-09-10] MEDS: Enoxaparin 40 MG/0.4 ML SYR SUBCUT SCH (21:14)
[2020-09-11] MEDS: ceFAZolin 2 GM PREMIX 2 GM/50 ML BAG IVPB SCH ×3 (06:36→22:29)
[2020-09-11 07:00] LABS: Hematocrit 31 % (35-47); Hemoglobin 9.5 g/dL (12.0-16.0); Mean Corpuscular HGB Conc 30 g/dL (31-36); Mean Corpuscular Hemoglobin 22 pg (27-31); Mean Corpuscular Volume 72 fL (80-97); Mean Platelet Volume 7.5 fL (7.4-10.4); Platelet Count 722 10^3/uL (150-450); Red Blood Count 4.38 10^6 /uL (3.70-4.87); Red Cell Distribution Width 28 % (10-15); White Blood Count 5.2 10^3/uL (3.5-10.8)
[2020-09-11 07:17] LABS: BUN/Creatinine Ratio 16.4 (8-20); Calcium 9.6 mg/dL (8.6-10.3); EGFR African American 119.5 (>60); EGFR Non-African American 98.7 (>60); Potassium 3.7 mmol/L (3.5-5.0)
[2020-09-11] MEDS: Bacitracin OINTMENT TUBE TOPICAL SCH (08:17)
[2020-09-11] MEDS ORDERED: Senna TAB 8.6 mg TAB PO PRN (14:04)
[2020-09-11] MEDS: Enoxaparin 40 MG/0.4 ML SYR SUBCUT SCH (20:00)
[2020-09-11] MEDS: Magnesium Hydroxide LIQ 30 ML UDC PO SCH (22:41)
[2020-09-12] MEDS: ceFAZolin 2 GM PREMIX 2 GM/50 ML BAG IVPB SCH ×3 (05:39→21:29)
[2020-09-12 06:26] LABS: Hematocrit 27 % (35-47); Hemoglobin 8.8 g/dL (12.0-16.0); Mean Corpuscular HGB Conc 32 g/dL (31-36); Mean Corpuscular Hemoglobin 23 pg (27-31); Mean Corpuscular Volume 72 fL (80-97); Mean Platelet Volume 7.2 fL (7.4-10.4); Platelet Count 607 10^3/uL (150-450); Red Blood Count 3.78 10^6 /uL (3.70-4.87); Red Cell Distribution Width 28 % (10-15); White Blood Count 5.4 10^3/uL (3.5-10.8)
[2020-09-12] MEDS: Magnesium Hydroxide LIQ 30 ML UDC PO SCH ×2 (08:23→21:30)
[2020-09-12] MEDS: Bacitracin OINTMENT TUBE TOPICAL SCH (08:25)
[2020-09-12] MEDS ORDERED: Gadoteridol (CONTRAST) 279.3 MG/ML 10 ML IV ONE (18:52)
[2020-09-13] MEDS: ceFAZolin 2 GM PREMIX 2 GM/50 ML BAG IVPB SCH ×3 (05:59→21:11)
[2020-09-13 06:05] LABS: Hematocrit 29 % (35-47); Hemoglobin 8.7 g/dL (12.0-16.0)
[2020-09-13] MEDS: Bacitracin OINTMENT TUBE TOPICAL SCH (13:06)
[2020-09-13] MEDS ORDERED: Ondansetron 4 mg VIAL 2 MG/ML 2 ml VIAL IV PRN (14:10)
[2020-09-13] MEDS: Triamcinolone 0.025% OINT 15 GM TUBE TOPICAL PRN ×2 (22:11→22:13)
[2020-09-14] MEDS: ceFAZolin 2 GM PREMIX 2 GM/50 ML BAG IVPB SCH ×4 (05:56→20:35)
[2020-09-14 06:27] LABS: Hematocrit 31 % (35-47); Hemoglobin 9.3 g/dL (12.0-16.0)
[2020-09-14] MEDS: Bacitracin OINTMENT TUBE TOPICAL SCH (08:41)
[2020-09-14] MEDS ORDERED: Buffered Lidocaine 1% SYRIN 1 ml INTRADERM ONE ×3 (11:42→15:14)
[2020-09-14] MEDS ORDERED: diPHENhydraMINE 25 mg TAB PO PRN (15:36)
[2020-09-15] MEDS: ceFAZolin 2 GM PREMIX 2 GM/50 ML BAG IVPB SCH ×3 (05:42→22:52)
[2020-09-15] MEDS: Bacitracin OINTMENT TUBE TOPICAL SCH (08:54)
[2020-09-16 06:44] LABS: ABS Basophils 0.1 10^3/ul (0-0.2); ABS Eosinophils 0.2 10^3/ul (0-0.6); ABS Lymphocytes 1.7 10^3/ul (1.0-4.8); ABS Monocytes 0.5 10^3/ul (0-0.8); ABS Neutrophils 2.5 10^3/ul (1.5-7.7); Eosinophil % 3.4 %; Hematocrit 31 % (35-47); Hemoglobin 9.2 g/dL (12.0-16.0); Lymphocyte % 34.7 %; Mean Corpuscular HGB Conc 30 g/dL (31-36); Mean Corpuscular Hemoglobin 22 pg (27-31); Mean Corpuscular Volume 74 fL (80-97); Mean Platelet Volume 7.3 fL (7.4-10.4); Platelet Count 495 10^3/uL (150-450); Red Blood Count 4.19 10^6 /uL (3.70-4.87); Red Cell Distribution Width 28 % (10-15); White Blood Count 4.9 10^3/uL (3.5-10.8)
[2020-09-16 07:00] LABS: ALT 14 U/L (7-52); AST 26 U/L (13-39); Albumin 4.2 g/dL (3.2-5.2); Albumin/Globulin Ratio 1.5 (1-3); Alkaline Phosphatase 76 U/L (34-104); Anion Gap 7 mmol/L (2-11); BUN/Creatinine Ratio 14.5 (8-20); Blood Urea Nitrogen 9 mg/dL (6-24); CO2 Carbon Dioxide 28 mmol/L (22-32); Calcium 9.7 mg/dL (8.6-10.3); Chloride 98 mmol/L (101-111); EGFR African American 117.3 (>60); EGFR Non-African American 96.9 (>60); Globulin 2.8 g/dL (2-4); Glucose 152 mg/dL (70-100); Magnesium 1.8 mg/dL (1.9-2.7); Potassium 3.9 mmol/L (3.5-5.0); Sodium 133 mmol/L (135-145); Uric Acid 3.4 mg/dL (2.3-6.6)
[2020-09-16 07:01] LABS: Rheumatoid Factor < 10 IU/mL (<15)
[2020-09-16] MEDS: Bacitracin OINTMENT TUBE TOPICAL SCH (08:20)
[2020-09-16] MEDS: Triamcinolone 0.025% OINT 15 GM TUBE TOPICAL PRN ×3 (08:20→20:25)
[2020-09-16] MEDS: ceFAZolin 2 GM PREMIX 2 GM/50 ML BAG IVPB SCH ×3 (10:23→20:15)
[2020-09-17] MEDS: ceFAZolin 2 GM PREMIX 2 GM/50 ML BAG IVPB SCH ×3 (02:22→17:57)
[2020-09-17 06:54] LABS: Calcium 9.4 mg/dL (8.6-10.3); EGFR African American 119.5 (>60); EGFR Non-African American 98.7 (>60); Magnesium 1.8 mg/dL (1.9-2.7); Potassium 4.2 mmol/L (3.5-5.0)
[2020-09-17] MEDS ORDERED: Magnesium Sulfate IV 1GM/100ML 1 GM/100 ML BAG IV ONE (07:54)
[2020-09-17 08:25] LABS: Hematocrit 29 % (35-47); Hemoglobin 8.9 g/dL (12.0-16.0); Mean Corpuscular HGB Conc 31 g/dL (31-36); Mean Corpuscular Hemoglobin 23 pg (27-31); Mean Corpuscular Volume 74 fL (80-97); Platelet Count 420 10^3/uL (150-450); Red Blood Count 3.95 10^6 /uL (3.70-4.87); Red Cell Distribution Width 27 % (10-15); White Blood Count 4.3 10^3/uL (3.5-10.8)
[2020-09-17] MEDS: Bacitracin OINTMENT TUBE TOPICAL SCH (09:08)
[2020-09-17] MEDS ORDERED: Buffered Lidocaine 1% SYRIN 1 ml INTRADERM ONE (10:19)
[2020-09-18] MEDS: ceFAZolin 2 GM PREMIX 2 GM/50 ML BAG IVPB SCH (02:45)
[2020-09-18 06:30] LABS: ABS Eosinophils 0.2 10^3/ul (0-0.6); ABS Lymphocytes 1.6 10^3/ul (1.0-4.8); ABS Monocytes 0.6 10^3/ul (0-0.8); ABS Neutrophils 2.6 10^3/ul (1.5-7.7); Eosinophil % 3.4 %; Hematocrit 30 % (35-47); Hemoglobin 8.9 g/dL (12.0-16.0); Lymphocyte % 31.3 %; Mean Corpuscular HGB Conc 30 g/dL (31-36); Mean Corpuscular Hemoglobin 22 pg (27-31); Mean Corpuscular Volume 74 fL (80-97); Mean Platelet Volume 7.8 fL (7.4-10.4); Platelet Count 376 10^3/uL (150-450); Red Blood Count 4.06 10^6 /uL (3.70-4.87); Red Cell Distribution Width 27 % (10-15)
[2020-09-18 06:41] LABS: BUN/Creatinine Ratio 20.6 (8-20); Calcium 9.2 mg/dL (8.6-10.3); EGFR African American 115.1 (>60); EGFR Non-African American 95.1 (>60); Magnesium 1.9 mg/dL (1.9-2.7)
[2020-09-18] MEDS ORDERED: diPHENhydraMINE 25 mg TAB PO PRN (10:56)
[2020-09-18] MEDS: Bacitracin OINTMENT TUBE TOPICAL SCH (11:13)
[2020-09-18 11:25] VITALS: BP 129/62
[2020-09-18 13:54] LABS: Haptoglobin 107 mg/dL (30 - 200)
[2020-09-18 21:54] LABS: Albumin 3.2 g/dL (3.4-4.7); Albumin/Globulin Ratio 0.93; Gamma Globulin 0.8 g/dL (0.6-1.6); Total Protein(PEP) 6.6 g/dL (6.3 - 7.9)
== END 2020-09-18 16:00 | disposition home or self-care (01) | DRG 724 ==
LOC: MED 13:09 → ED 13:09 → MED 22:45
PROVIDERS: ADMIT Internal Medicine; ATTEND Internal Medicine

== ENCOUNTER 2020-10-10 15:36 | Inpatient (IN) ==
[2020-10-10 18:50] LABS: Hematocrit 29 % (35-47); Mean Corpuscular HGB Conc 31 g/dL (31-36); Mean Corpuscular Hemoglobin 22 pg (27-31); Mean Corpuscular Volume 71 fL (80-97); Mean Platelet Volume 8.3 fL (7.4-10.4); Platelet Count 319 10^3/uL (150-450); Red Blood Count 4.12 10^6 /uL (3.70-4.87); Red Cell Distribution Width 25 % (10-15)
[2020-10-10 18:59] LABS: ALT 18 U/L (7-52); AST 22 U/L (13-39); Albumin 4.4 g/dL (3.2-5.2); Albumin/Globulin Ratio 1.4 (1-3); Alkaline Phosphatase 117 U/L (34-104); Anion Gap 11 mmol/L (2-11); Blood Urea Nitrogen 8 mg/dL (6-24); CO2 Carbon Dioxide 27 mmol/L (22-32); Calcium 9.3 mg/dL (8.6-10.3); Chloride 92 mmol/L (101-111); EGFR African American 140.5 (>60); EGFR Non-African American 116.1 (>60); Globulin 3.1 g/dL (2-4); Glucose 234 mg/dL (70-100); Potassium 3.7 mmol/L (3.5-5.0); Sodium 130 mmol/L (135-145); Total Protein 7.5 g/dL (6.4-8.9)
[2020-10-10 19:50] LABS: ABS Basophils 0.1 10^3/ul (0-0.2); ABS Lymphocytes 0.7 10^3/ul (1.0-4.8); ABS Monocytes 0.6 10^3/ul (0-0.8); ABS Neutrophils 6.6 10^3/ul (1.5-7.7); Lymphocyte % 8.3 %
[2020-10-10] MEDS ORDERED: Dextrose 50% Syringe 50 ml 25 GM/50 ML SYRINGE IV PUSH PRN (20:44)
[2020-10-10 23:18] LABS: Alcohol, S < 10 mg/dL (<10)
[2020-10-10 23:20] LABS: Creatine Kinase 51 U/L (10-223)
[2020-10-11] MEDS: Enoxaparin 40 MG/0.4 ML SYR SUBCUT SCH ×2 (00:15→21:32)
[2020-10-11 06:13] LABS: ABS Basophils 0.1 10^3/ul (0-0.2); ABS Lymphocytes 1.4 10^3/ul (1.0-4.8); ABS Monocytes 0.8 10^3/ul (0-0.8); ABS Neutrophils 4.9 10^3/ul (1.5-7.7); Eosinophil % 0.4 %; Hematocrit 30 % (35-47); Hemoglobin 9.5 g/dL (12.0-16.0); Lymphocyte % 18.9 %; Mean Corpuscular HGB Conc 32 g/dL (31-36); Mean Corpuscular Hemoglobin 22 pg (27-31); Mean Corpuscular Volume 70 fL (80-97); Mean Platelet Volume 8.4 fL (7.4-10.4); Nucleated Red Blood Cells % 0.1; Platelet Count 309 10^3/uL (150-450); Red Blood Count 4.29 10^6 /uL (3.70-4.87); Red Cell Distribution Width 25 % (10-15); White Blood Count 7.2 10^3/uL (3.5-10.8)
[2020-10-11 06:28] LABS: Albumin 4.3 g/dL (3.2-5.2); Albumin/Globulin Ratio 1.4 (1-3); Calcium 9.4 mg/dL (8.6-10.3); EGFR African American 124.2 (>60); EGFR Non-African American 102.6 (>60); Globulin 3.1 g/dL (2-4); Potassium 3.1 mmol/L (3.5-5.0); Total Bilirubin 1.9 mg/dL (0.2-1.0); Total Protein 7.4 g/dL (6.4-8.9)
[2020-10-11 07:39] LABS: INR 1.06 (0.82-1.09)
[2020-10-11] MEDS: Cholestyramine Resin 4 GM POWDER PO SCH ×2 (08:35→21:32)
[2020-10-11] MEDS ORDERED: Potassium Chlor 20 meq TAB.ER PO ONE (10:58)
[2020-10-11 11:22] LABS: Magnesium 1.7 mg/dL (1.9-2.7)
[2020-10-11] MEDS ORDERED: Magnesium Sulfate 2 gm BAG 2 GM/50 ML BAG IVPB ONE (15:36)
[2020-10-12 04:54] LABS: Calcium 9.2 mg/dL (8.6-10.3); EGFR African American 103.6 (>60); EGFR Non-African American 85.7 (>60); Potassium 3.7 mmol/L (3.5-5.0)
[2020-10-12] MEDS: Cholestyramine Resin 4 GM POWDER PO SCH ×2 (08:30→23:29)
[2020-10-12] MEDS: Enoxaparin 40 MG/0.4 ML SYR SUBCUT SCH (23:28)
[2020-10-13 06:00] LABS: Albumin/Globulin Ratio 1.4 (1-3); Calcium 9.1 mg/dL (8.6-10.3); EGFR African American 131.9 (>60); Globulin 2.8 g/dL (2-4); Potassium 3.9 mmol/L (3.5-5.0); Total Bilirubin 0.7 mg/dL (0.2-1.0); Total Protein 6.8 g/dL (6.4-8.9)
[2020-10-13 06:30] LABS: TSH Ultra Thyroid Stim Horm 4.24 mcIU/mL (0.34-5.60)
[2020-10-13] MEDS: Cholestyramine Resin 4 GM POWDER PO SCH ×3 (09:13→19:53)
[2020-10-13] MEDS: Enoxaparin 40 MG/0.4 ML SYR SUBCUT SCH (19:53)
[2020-10-14 04:49] LABS: ABS Basophils 0.1 10^3/ul (0-0.2); ABS Eosinophils 0.2 10^3/ul (0-0.6); ABS Lymphocytes 1.5 10^3/ul (1.0-4.8); ABS Monocytes 0.5 10^3/ul (0-0.8); ABS Neutrophils 3.4 10^3/ul (1.5-7.7); Eosinophil % 3.5 %; Hematocrit 28 % (35-47); Hemoglobin 8.8 g/dL (12.0-16.0); Lymphocyte % 26.9 %; Mean Corpuscular HGB Conc 31 g/dL (31-36); Mean Corpuscular Hemoglobin 23 pg (27-31); Mean Corpuscular Volume 72 fL (80-97); Mean Platelet Volume 8.3 fL (7.4-10.4); Platelet Count 253 10^3/uL (150-450); Red Blood Count 3.89 10^6 /uL (3.70-4.87); Red Cell Distribution Width 25 % (10-15); White Blood Count 5.8 10^3/uL (3.5-10.8)
[2020-10-14 05:01] LABS: Albumin 3.9 g/dL (3.2-5.2); Albumin/Globulin Ratio 1.4 (1-3); Calcium 8.9 mg/dL (8.6-10.3); EGFR African American 124.2 (>60); EGFR Non-African American 102.6 (>60); Globulin 2.7 g/dL (2-4); Magnesium 1.6 mg/dL (1.9-2.7); Potassium 3.9 mmol/L (3.5-5.0); Total Bilirubin 0.6 mg/dL (0.2-1.0); Total Protein 6.6 g/dL (6.4-8.9)
[2020-10-14] MEDS: Cholestyramine Resin 4 GM POWDER PO SCH ×2 (07:15→20:51)
[2020-10-14] MEDS ORDERED: Magnesium Sulf 4 GM/100 ML IV 4,000 MG/100 ML BAG IVPB ONE (08:19)
[2020-10-14] MEDS ORDERED: Ondansetron ODT 4 mg TAB 4 MG TAB SL ONE (13:36)
[2020-10-14] MEDS ORDERED: Ondansetron ODT 4 mg TAB 4 MG TAB ONE (13:41)
[2020-10-14] MEDS: Enoxaparin 40 MG/0.4 ML SYR SUBCUT SCH (20:50)
[2020-10-15] MEDS ORDERED: Senna TAB 8.6 mg TAB PO PRN (07:48)
[2020-10-15] MEDS ORDERED: Magnesium Hydroxide LIQ 30 ML UDC PO PRN (07:48)
[2020-10-15] MEDS ORDERED: Polyethylene Glycol 3350 17 GM PACKET PO PRN (07:48)
[2020-10-15] MEDS: Cholestyramine Resin 4 GM POWDER PO SCH (08:01)
[2020-10-15 11:14] VITALS: BP 130/65
== END 2020-10-15 17:00 | disposition home health service (06) ==
LOC: ED 15:36 → SSU 22:09
PROVIDERS: ADMIT Internal Medicine; ATTEND Internal Medicine

== ENCOUNTER 2021-01-28 11:17 | Inpatient (IN) ==
[2021-01-28] MEDS ORDERED: Bacitracin OINTMENT TUBE TOPICAL ONE (11:52)
[2021-01-28 12:48] LABS: Albumin 4.8 g/dL (3.2-5.2); Albumin/Globulin Ratio 1.5 (1-3); EGFR African American 134.6 (>60); EGFR Non-African American 111.3 (>60); Globulin 3.2 g/dL (2-4); Potassium 3.7 mmol/L (3.5-5.0)
[2021-01-28 12:49] LABS: Troponin I 0.01 ng/mL (<0.03)
[2021-01-28] MEDS ORDERED: Lactated Ringers 1000 ml BAG 1,000 ML IV ONE (12:56)
[2021-01-28] MEDS ORDERED: Iodixanol (CONTRAST) 320 MG/ML 100 ML SDV IV ONE (12:58)
[2021-01-28 13:20] LABS: Hematocrit 27 % (35-47); Hemoglobin 8.2 g/dL (12.0-16.0); Mean Corpuscular HGB Conc 31 g/dL (31-36); Mean Corpuscular Hemoglobin 21 pg (27-31); Mean Corpuscular Volume 67 fL (80-97); Mean Platelet Volume 7.2 fL (7.4-10.4); Platelet Count 336 10^3/uL (150-450); Red Cell Distribution Width 23 % (10-15); White Blood Count 5.7 10^3/uL (3.5-10.8)
[2021-01-28 13:50] LABS: Anisocytosis 2+; Hypochromasia 2+; Microcytosis 2+; Polychromasia 1+; Target Cells 1+
[2021-01-28 13:51] LABS: ABS Eosinophils 0.1 10^3/ul (0-0.6); ABS Lymphocytes 0.5 10^3/ul (1.0-4.8); ABS Neutrophils 4.4 10^3/ul (1.5-7.7)
[2021-01-28] MEDS ORDERED: Lorazepam PYXIS KEY PRN ×2 (15:31→16:16)
[2021-01-28] MEDS ORDERED: LORazepam 2 mg VIAL 1 ml IV PUSH ONE ×2 (15:31→16:16)
[2021-01-28] MEDS: Lactated Ringers 1000 ml BAG 1,000 ML IV ONE ×2 (15:43→16:07)
[2021-01-28 16:30] LABS: Troponin I 0.01 ng/mL (<0.03)
[2021-01-28 16:50] LABS: Urine Appearance Clear; Urine Bilirubin Negative (Negative); Urine Blood 1+ (Negative); Urine Color Colorless; Urine Glucose 2+(150 mg/dL) (Negative); Urine Ketones Trace (Negative); Urine Nitrite Negative (Negative); Urine Protein 1+(30 mg/dL) (Negative); Urine Specific Gravity 1.021 (1.002-1.030); Urine Urobilinogen Negative (Negative)
[2021-01-28 17:04] LABS: Blood Urea Nitrogen 5 mg/dL (6-24); CO2 Carbon Dioxide 25 mmol/L (22-32); Calcium 9.4 mg/dL (8.6-10.3); Chloride 92 mmol/L (101-111); EGFR African American 140.5 (>60); EGFR Non-African American 116.1 (>60); Glucose 190 mg/dL (70-100); Sodium 134 mmol/L (135-145)
[2021-01-28 17:07] LABS: Urine Bacteria Absent (Absent); Urine Red Blood Cell Trace(0-2/hpf) (Absent); Urine Squamous Epithelial Cell Present (Absent); Urine White Blood Cell Absent (Absent)
[2021-01-28 17:15] LABS: Anion Gap 17 mmol/L (2-11)
[2021-01-28 17:17] LABS: Alcohol, S < 13 mg/dL (<13)
[2021-01-28] MEDS ORDERED: Dextrose 50% Syringe 50 ml 25 GM/50 ML SYRINGE IV PUSH PRN (18:17)
[2021-01-28 19:18] LABS: Total Iron Binding Capacity 622 mcg/dL (250-450); Transferrin 444 mg/dL (203-362)
[2021-01-28 19:22] LABS: % Iron Saturation 6 % (15-55); Ferritin 7.1 ng/mL (11-307); Iron 36 ug/dL (50-212); Unsaturated Iron Binding < 607 ug/dL
[2021-01-28 19:25] LABS: Folate 19.65 ng/mL (5.90-24.80)
[2021-01-28 19:26] LABS: Vitamin B12 351 pg/mL (180-914)
[2021-01-28 21:25] LABS: Magnesium 1.1 mg/dL (1.9-2.7); Potassium Redraw 3.3 mmol/L (3.5-5.0)
[2021-01-28] MEDS ORDERED: Potassium Chlor 10 meq TAB PO ONE (21:36)
[2021-01-28] MEDS ORDERED: Magnesium Sulfate IV 3 GM in NS 0.9% 100 ml BAG 100 ML IVPB ONE (21:36)
[2021-01-28] MEDS ORDERED: KCL 20 MEQ/100 ML IVPREMIX 20 MEQ/100 ML BAG IV SCH (22:00)
[2021-01-28] MEDS: Enoxaparin 40 MG/0.4 ML SYR SUBCUT SCH (22:08)
[2021-01-28] MEDS ORDERED: Potassium Chlor 20 meq TAB.ER PO ONE (23:39)
[2021-01-29] MEDS ORDERED: Labetalol IV 5 MG/ML 20 ml VIAL IV PUSH ONE (02:45)
[2021-01-29 06:05] LABS: Hematocrit 26 % (35-47); Mean Corpuscular HGB Conc 30 g/dL (31-36); Mean Corpuscular Hemoglobin 20 pg (27-31); Mean Corpuscular Volume 66 fL (80-97); Mean Platelet Volume 8.2 fL (7.4-10.4); Platelet Count 308 10^3/uL (150-450); Red Blood Count 3.98 10^6 /uL (3.70-4.87); Red Cell Distribution Width 23 % (10-15); White Blood Count 4.7 10^3/uL (3.5-10.8)
[2021-01-29 06:16] LABS: Calcium 8.7 mg/dL (8.6-10.3); EGFR African American 137.5 (>60); EGFR Non-African American 113.7 (>60); Magnesium 2.3 mg/dL (1.9-2.7); Potassium 3.9 mmol/L (3.5-5.0)
[2021-01-29 06:29] LABS: Hypochromasia 2+; Microcytosis 3+
[2021-01-29 06:30] LABS: ABS Basophils 0.1 10^3/ul (0-0.2); ABS Eosinophils 0.1 10^3/ul (0-0.6); ABS Lymphocytes 1.1 10^3/ul (1.0-4.8); ABS Monocytes 0.4 10^3/ul (0-0.8)
[2021-01-29] MEDS: Multivitamins/Minerals TAB PO SCH (08:18)
[2021-01-29] MEDS ORDERED: Cyanocobalamin INJ 1,000 MCG/ML VIAL 1 ML VIAL IM ONE (20:03)
[2021-01-29] MEDS: Enoxaparin 40 MG/0.4 ML SYR SUBCUT SCH (21:42)
[2021-01-30 07:14] LABS: Calcium 8.9 mg/dL (8.6-10.3); EGFR African American 129.2 (>60); EGFR Non-African American 106.8 (>60); Potassium 3.9 mmol/L (3.5-5.0)
[2021-01-30 07:16] LABS: Hematocrit 27 % (35-47); Mean Corpuscular HGB Conc 30 g/dL (31-36); Mean Corpuscular Hemoglobin 20 pg (27-31); Mean Corpuscular Volume 67 fL (80-97); Mean Platelet Volume 8.4 fL (7.4-10.4); Platelet Count 258 10^3/uL (150-450); Red Cell Distribution Width 23 % (10-15); White Blood Count 4.1 10^3/uL (3.5-10.8)
[2021-01-30] MEDS: Multivitamins/Minerals TAB PO SCH (08:49)
[2021-01-30] MEDS: Enoxaparin 40 MG/0.4 ML SYR SUBCUT SCH (22:20)
[2021-01-30] MEDS: Iron Sucrose 200 MG in NS 0.9% 100 ml BAG 100 ML IVPB SCH (22:21)
[2021-01-31] MEDS: Multivitamins/Minerals TAB PO SCH (09:15)
[2021-01-31] MEDS: Iron Sucrose 200 MG in NS 0.9% 100 ml BAG 100 ML IVPB SCH (09:32)
[2021-01-31] MEDS: Enoxaparin 40 MG/0.4 ML SYR SUBCUT SCH (21:03)
[2021-02-01] MEDS ORDERED: Labetalol IV 5 MG/ML 20 ml VIAL IV PUSH ONE (03:10)
[2021-02-01 06:02] LABS: Hematocrit 26 % (35-47); Hemoglobin 7.5 g/dL (12.0-16.0); Mean Corpuscular HGB Conc 29 g/dL (31-36); Mean Corpuscular Hemoglobin 20 pg (27-31); Mean Corpuscular Volume 69 fL (80-97); Mean Platelet Volume 8.4 fL (7.4-10.4); Platelet Count 233 10^3/uL (150-450); Red Blood Count 3.68 10^6 /uL (3.70-4.87); Red Cell Distribution Width 23 % (10-15); White Blood Count 4.9 10^3/uL (3.5-10.8)
[2021-02-01 06:13] LABS: Calcium 8.8 mg/dL (8.6-10.3); EGFR African American 121.8 (>60); EGFR Non-African American 100.6 (>60); Potassium 3.5 mmol/L (3.5-5.0)
[2021-02-01 08:14] VITALS: BP 161/60
[2021-02-01] MEDS: Iron Sucrose 200 MG in NS 0.9% 100 ml BAG 100 ML IVPB SCH ×2 (09:03→13:11)
[2021-02-01] MEDS: Multivitamins/Minerals TAB PO SCH (09:03)
== END 2021-02-01 10:40 | disposition home or self-care (01) | DRG 775 ==
LOC: ED 11:17 → MEDTELE 19:56 → SUATTDRO 20:17 → MEDTELE 01-30 10:56
PROVIDERS: ADMIT Internal Medicine; ATTEND Hospitalist